=== PATIENT | female | born 1945 | race Caucasian/White ===

== ENCOUNTER 2021-11-08 10:10 | Outpatient (CLI) | payer MEDICARE, SELFPAY ==
--- NOTE | 2021-11-08 10:20 | US_ITS ---
WS: [id number] Left breast ultrasound, 11/08/2021 Clinical Data: LT BREAST MASS Comparison: Mammogram, 11/08/2021 Findings: There is a 3.5 cm irregular mass with mixed echotexture in the 6:00 position. This mass is most consi stent with carcinoma of the breast. In the left axilla there are lymph nodes, one of which measures 0 .73 x 1.00 x 1.13 cm. US/US breast LT limited* [id number] Impression: 1. Irregular mass in the left breast most consistent with cancer. 2. Left axillary lymph nodes. 3. Recommend left breast biopsy BIRADS: 5-Highly Suggestive of Malignancy FOLLOW UP: See Report
--- NOTE | 2021-11-08 10:20 | MM_ITS ---
WS: [id number] Bilateral diagnostic 3D tomosynthesis digital mammogram, 11/08/2021 Clinical Data: LT BREAST MASS Comparison: None. Findings: The right breast is normal. The right breast shows fibroglandular tissue. The left breast shows an 3.5 cm irregular dense spiculated mass in the 6:00 position in the left teri st. This mass corresponds to the marker. There is retraction of the nipple and skin dimpling. MM/[place] [id number] Impression: 1. Abnormal 3.5 cm mass in the left breast suspicious for cancer. 2. Negative right breast. 3. Left breast ultrasound. BIRADS: 5-Highly Suggestive of Malignancy FOLLOW UP: See Report The CAD coloring checker was used.
== END 2021-11-08 10:11 | disposition home or self-care (01) ==
LOC: RAD 10:15
PROVIDERS: PCP Nurse Practitioner Family; Visit Provider Nurse Practitioner Family
DX: N63.25 Unspecified lump in the left breast, overlapping quadrants (principal)
CPT/HCPCS: 76642; 77062

== ENCOUNTER 2021-11-30 10:25 | Outpatient (CLI) | payer MEDICARE, SELFPAY ==
--- NOTE | 2021-11-30 | US_ITS ---
WS: [id number] ULTRASOUND-GUIDED LEFT BREAST BIOPSY ULTRASOUND-GUIDED LEFT AXILLARY LYMPH NODE BIOPSY HISTORY: LEFT breast mass. Abnormal LEFT axillary lymph node. COMPARISON: 11/08/2021 Procedure, risks and complications are explained to the patient. Medications are reviewed. Consent is obtained. The mass in the LEFT breast is localized with ultrasound. Mass localizes to 6:00. Skin is cleansed wi th ChloraPrep and anesthetized with 1% buffered lidocaine. Small dermatome is made. Under sterile con ditions mass is biopsied with a 14-gauge Achieve needle. Multiple core biopsies are performed. Materi al placed in formalin and sent to pathology for review. No complications encountered. Breast tissue marker (Seemage ultrasound enhanced ribbon): Single. LEFT axillary lymph node is biopsied with a 20-gauge needle. Biopsy clip placed after procedure. No c omplications. Specimen placed in saline. Patient left the radiology suite with no complications. Patient is instructed to return to [facility] or [facility] with any concerns. US/US biopsy lymph node breast/ax IMPRESSION: 1. Uncomplicated core needle biopsy LEFT breast mass at 6:00. 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 Please see the entire pathology report for additional inf ormation. Lymphovascular invasion is identified. RECOMMENDATION: Follow-up with breast surgeon and oncology. 2. Uncomplicated core needle biopsy LEFT axillary lymph node. 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 RECOMMENDATION: Follow-up with breast surgeon and oncology.
--- NOTE | 2021-11-30 10:44 | US_ITS ---
WS: [id number] ULTRASOUND-GUIDED LEFT BREAST BIOPSY ULTRASOUND-GUIDED LEFT AXILLARY LYMPH NODE BIOPSY HISTORY: LEFT breast mass. Abnormal LEFT axillary lymph node. COMPARISON: 11/08/2021 Procedure, risks and complications are explained to the patient. Medications are reviewed. Consent is obtained. The mass in the LEFT breast is localized with ultrasound. Mass localizes to 6:00. Skin is cleansed wi th ChloraPrep and anesthetized with 1% buffered lidocaine. Small dermatome is made. Under sterile con ditions mass is biopsied with a 14-gauge Achieve needle. Multiple core biopsies are performed. Materi al placed in formalin and sent to pathology for review. No complications encountered. Breast tissue marker (Cyrba ultrasound enhanced ribbon): Single. LEFT axillary lymph node is biopsied with a 20-gauge needle. Biopsy clip placed after procedure. No c omplications. Specimen placed in saline. Patient left the radiology suite with no complications. Patient is instructed to [place] [facility] [place] [facility] with any concerns. US/[place] [id number] IMPRESSION: 1. Uncomplicated core needle biopsy LEFT breast mass at 6:00. 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 Please see the entire pathology report for additional inf ormation. Lymphovascular invasion is identified. RECOMMENDATION: Follow-up with breast surgeon and oncology. 2. Uncomplicated core needle biopsy LEFT axillary lymph node. 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 RECOMMENDATION: Follow-up with breast surgeon and oncology.
[2021-12-03 14:00] LABS: Lymphoma Profile (BBPL) See Report
[2021-12-06 13:46] LABS: Breast Profile ER,PR,HER2,Ki-6 See Report
== END 2021-11-30 10:26 | disposition home or self-care (01) ==
LOC: RAD 10:26
PROVIDERS: PCP Nurse Practitioner Family; Visit Provider Nurse Practitioner Family
DX: N63.25 Unspecified lump in the left breast, overlapping quadrants (principal); C50.812 Malignant neoplasm of overlapping sites of left female breast
CPT/HCPCS: 19083; 38505; 76942; 88184; 88185; 88305; 88361; 88374

== ENCOUNTER 2021-12-25 15:26 | Oncology outpatient (recurring) (ONCR) | payer MEDICARE, SELFPAY | END 2022-01-23 23:59 | disposition home or self-care (01) | PROVIDERS: PCP Nurse Practitioner Family; Visit Provider Internal Medicine Hematology & Oncology | DX: C50.812 Malignant neoplasm of overlapping sites of left female breast (principal); Z17.0 Estrogen receptor positive status [ER+]; C77.3 Secondary and unspecified malignant neoplasm of axilla and upper limb lymph nodes; Z79.818 Long term (current) use of other agents affecting estrogen receptors and estrogen levels | CPT/HCPCS: 99204 ==

== ENCOUNTER 2022-02-05 09:46 | Oncology outpatient (recurring) (ONCR) | payer MEDICARE, SELFPAY ==
[2022-01-30 10:06] LABS: Basophils % 0.4 %; Eosinophils # 0.1 10^3/uL (0.0-0.8); Eosinophils % 1.3 %; Hematocrit 41.2 % (37.0-47.0); Hemoglobin 13.6 g/dL (11.5-15.3); Lymphocytes # 2.1 10^3/uL (0.8-4.8); Lymphocytes % 23.5 %; Mean Corpuscular Hemoglobin 31.2 pg (28.0-34.0); Mean Corpuscular Volume 94.5 fl (81-99); Mean Platelet Volume 9.6 fL (7.4-10.4); Monocytes # 0.4 10^3/uL (0.2-0.9); Monocytes % 4.9 %; Neutrophils # 6.21 10^3/uL (1.8-7.7); Neutrophils % 69.5 %; Nucleated Red Blood Cells % 0 %; Platelet Count 349 10^3/cmm (130-400); Red Blood Count 4.36 10^6/uL (4.1-5.3)
[2022-01-30 10:19] LABS: Alanine Aminotransferase 9 U/L (0-33); Albumin Level 3.9 g/dL (3.5-5.2); Alkaline Phosphatase 61 U/L (35-105); Anion Gap 14.2 (5-19); Aspartate Amino Transferase 10 U/L (0-32); Blood Urea Nitrogen 10 mg/dL (8-23); Calcium 9.3 mg/dL (8.5-10.5); Carbon Dioxide 26 mmol/L (22-29); Chloride 102 mmol/L (98-107); Globulin 2.7 g/dL (1.3-4.6); Glucose 104 mg/dL (65-115); Osmolality Calculated 285 mOsm/kg (285-295); Potassium 4.2 mmol/L (3.5-5.1); Sodium 138 mmol/L (136-145); Total Bilirubin 0.4 mg/dL (0.15-1.2); Total Protein 6.6 g/dL (6.6-8.7)
--- NOTE | 2022-02-05 11:11 | N.ONRAD NP_ITS ---
Radiation Oncology Consultation Patient Name: Nancy Stockton Date of : 1945 Date of Service: 02/05/2022 Attending Physician: Narendra Montano M.D. Nancy Stockton was seen in in consultation this morning at the request Bin Edwards M.D. for consideration of postmastectomy radiotherapy in the management of a recently diagnosed breast cancer. She was evaluated for a palpable left breast mass. A diagnostic mammogram ordered on November 08, 2021 (independently reviewed in [facility]) revealed 3.5 cm irregular mass at the 6 o'clock position in the left breast. Ultrasonography confirmed a 3.5 cm mixed echotexture mass with left axillary lymphadenopathy. Needle core ultrasound-guided biopsy obtained on November 30, 2021 diagnosed a poorly-differentiated invasive ductal carcinoma with giant cell and sarcomatoid features within the left breast mass a left axillary lymph node biopsy also demonstrated a poorly-differentiated ductal carcinoma. The breast cancer prognostic profile was positive for estrogen receptor (98%) and progesterone receptor (95%), but HER-2 negative (2+; ratio 1.7). The KI???67 was 25%. A right mastectomy and left mastectomy with targeted axillary node dissection was performed by Florin Livingston M.D. on January 16, 2022. The pathology report (requested from the outside hospital and reviewed in [facility]) confirmed a 2.9 cm grade 3 invasive ductal carcinoma in the left mastectomy specimen. A grade 2 ductal carcinoma in situ of the solid subtype was present. All surgical margins were negative for malignancy (closest margin was 5 mm). A total of 3 lymph nodes were harvested with one harboring metastatic disease. The lymph node measured 2.9 cm with extranodal extension present. The right mastectomy tissue did not comprise any malignancy. The Oncotype DX Breast Recurrence Score was 8 (11% risk of distant recurrence; no apparent benefit with chemotherapy). Neoadjuvant aromatase inhibitor was prescribed by Bin Edwards M.D. The patient was referred for postmastectomy radiotherapy. I discussed with Ms. Stockton The [place] [employer] on Cancer Staging for breast cancer and specifically the patient's pathological stage IIA (T2N1a) breast cancer. I also reviewed The National Comprehensive Cancer Network Guidelines recommending adjuvant radiotherapy. This endorsement is in accordance to the classic studies by the [place] Breast [employer] Cooperative Group and the Early Breast Cancer Trialists??? Collaborative Group. She is aware that these studies demonstrated an overall survival improvement in patients treated with post-mastectomy radiotherapy. I would recommend a five week course of left chest wall and regional lymph node radiotherapy. A computed tomographic radiotherapy planning scan with contrast will be acquired in the treatment position to identify the clinical tumor volumes. The potential toxicities of post-mastectomy radiotherapy were reviewed. The patient has verbalized understanding would like to proceed as recommended. The patient's medical treatment plan has been discussed with Bin Edwards M.D. Signed by: Dr. Narendra Montano 02/05/2022 11:09:01 AM
== END 2022-02-23 23:59 | disposition home or self-care (01) ==
PROVIDERS: PCP Nurse Practitioner Family; Visit Provider Internal Medicine Hematology & Oncology
DX: C50.812 Malignant neoplasm of overlapping sites of left female breast (principal); Z17.0 Estrogen receptor positive status [ER+]; C77.3 Secondary and unspecified malignant neoplasm of axilla and upper limb lymph nodes; Z90.13 Acquired absence of bilateral breasts and nipples; Z79.818 Long term (current) use of other agents affecting estrogen receptors and estrogen levels; Z79.899 Other long term (current) drug therapy
CPT/HCPCS: 80053; 85025; 99205; 99214

== ENCOUNTER 2022-04-15 18:42 | Inpatient (IN) | payer MEDICARE, SELFPAY ==
[2022-04-15 18:44] VITALS: BP 136/60; PULSE 69; RESP 16; TEMP 36.6; O2SAT 92; BMI 25.6
--- NOTE | 2022-04-15 18:49 | XRR_ITS ---
PROCEDURE INFORMATION: Exam: XR Chest Exam date and time: 04/15/2022 6:58 PM Age: 76 years old Clinical indication: Screening exam; Pre-operative exam; Other: Pre op; Additional info: Fall TECHNIQUE: Imaging protocol: Radiologic exam of the chest. Views: 1 view. COMPARISON: No relevant prior studies available. FINDINGS: Lungs: Unremarkable. No consolidation. Pleural spaces: Unremarkable. No pleural effusion. No pneumothorax. Heart/Mediastinum: Unremarkable. No cardiomegaly. Bones/joints: Unremarkable. XR/XR chest 1V portable [id number] IMPRESSION: No acute findings.
--- NOTE | 2022-04-15 18:49 | XRR_ITS ---
PROCEDURE INFORMATION: Exam: XR Right Hip Exam date and time: 04/15/2022 6:58 PM Age: 76 years old Clinical indication: Injury or trauma; Fall; Fracture of pelvis & hip; Right; Traumatic fracture; Neck of femur; Displaced TECHNIQUE: Imaging protocol: Radiologic exam of the Right hip. Views: 1 view hip with pelvis when performed. COMPARISON: No relevant prior studies available. FINDINGS: Bones/joints: Right hip intertrochanteric to subtrochanteric impacted fracture with overlap of the fracture fragments along with a displaced lesser trochanter fracture. Soft tissues: Unremarkable. XR/XR hip RT 2-3V wo/w pel* [id number] IMPRESSION: Right hip intertrochanteric to subtrochanteric impacted fracture with overlap of the fracture fragments along with a displaced lesser trochanter fracture.
--- NOTE | 2022-04-15 18:49 | W.ED.EXTPRO ---
HPI - Extremity Problem General: Chief complaint: Extremity Injury, Lower Stated complaint: FALL/ FEMUR/HIP FX Time Seen by Provider: 04/15/22 18:44 Source: patient and EMS Mode of arrival: EMS Limitations: no limitations History of Present Illness: 76-year-old female who had a ground-level fall onto her right side just prior to arrival she states landed on her right hip does not be able to stand she been having right hip pain she was given 100 mcg of fentanyl in route states her pain is resolved but it is painful when she tries to move her legs she denies any other injuries with her fall denies hitting her head denies any neck pain. Associated symptoms: Deny chest pain, fever(s) or rash Review of Systems Const: Denies: fever(s), chills, body aches or change in appetite Eyes: Denies: blurry vision or eye discomfort ENMT: Denies: throat pain or dental pain Card: Denies: chest pain Resp: Denies: dyspnea GI: Denies: abdominal pain, nausea, vomiting or diarrhea : Denies: dysuria Musc: Reports: extremity pain Skin/Breast: Denies: rash Neuro: Denies: headache(s) Psych: Denies: depression Gopal/Lymph: Denies: easy bruising All/Imm: Denies: urticaria PFSH ED PFSH: Surgical History (Updated 04/15/22 @ 18:51 by Gerardo Bueno MD) History of mastectomy Right - 01/16/2022 Family History Mother CAD (coronary artery disease) Diabetes Father Cancer Prostate Daughter Lung disease Other Hypertension Denies family history of Clotting disorder Dementia Hyperlipidemia Psychiatric illness Chronic kidney disease (CKD) Suicide Anesthesia complication Bleeding disorder Stroke Social History Smoking and tobacco status: current every day smoker (1 ppd, smoked x 50+ years) Alcohol intake: never Physical Exam Const: COMMON NORMALS: no acute distress, patient oriented x3 and healthy appearing HENMT: COMMON NORMALS: normocephalic and atraumatic HEAD & SCALP: normocephalic and atraumatic Eye: COMMON NORMALS: Equal, round and reactive pupils present and EOMs intact bilaterally PUPIL: Yes Equal, round and reactive pupils present Neck/C-Spine: COMMON NORMALS: full ROM and supple Chest: COMMONS NORMALS: normal inspection of the chest and normal palpation of entire chest wall Resp: COMMON NORMALS: normal respiratory effort, No retractions, No use of accessory muscles and clear to auscultation bilaterally AUSCULTATION: clear to auscultation bilaterally Cardio: COMMON NORMALS: regular rate, regular rhythm and No murmurs present (Cardio) RATE: regular rate RHYTHM: regular rhythm GI: COMMON NORMALS: Normal to inspection, nondistended, normoactive bowel sounds present, Soft to palpation, non-tender and no masses PALPATION: Yes Soft to palpation Extremity: NARRATIVE EXTREMITY EXAM: Tenderness over right hip with shortening and external rotation Neuro: COMMON NORMALS: patient oriented x3, moves all extremities and no focal motor deficits Psych: COMMON NORMALS: mental status grossly normal, Normal thought process present and cooperative THOUGHT PROCESS: Normal thought process present Skin: COMMON NORMALS: no rashes or lesions noted and no wounds GENERAL SKIN EXAM: no rashes or lesions noted Course Vital Signs: Vital signs: Vital Signs Temperature 97.8 F 04/15/22 18:44 Pulse Rate 69 04/15/22 18:44 Respiratory Rate 16 04/15/22 18:44 Blood Pressure 136/60 04/15/22 18:44 Pulse Oximetry 92 04/15/22 18:44 Oxygen Delivery Me thod 04/15/22 18:44 MDM - Extremity (Nontraumatic) Medical Decision Making Patient presents here with a right hip fracture from a fall no other injuries noted I spoke to orthopedist along with hospitalist and will admit at this time. Lab Data 04/15/22 19:15 04/15/22 19:15 Laboratory Results WBC 27.2 10^3/uL (4.0-10.0) H 04/15/22 19:15 RBC 4.00 10^6/uL (4.1-5.3) L 04/15/22 19:15 Hgb 12.3 g/dL (11.5-15.3) 04/15/22 19:15 Hct 37.8 % (37.0-47.0) 04/15/22 19:15 MCV 94.5 fl (81-99) 04/15/22 19:15 MCH 30.8 pg (28.0-34.0) 04/15/22 19:15 MCHC 32.5 g/dL (30.0-36.0) 04/15/22 19:15 RDW 11.8 % (12.1-15.1) L 04/15/22 19:15 Plt Count 321 10^3/cmm (130-400) 04/15/22 19:15 MPV 9.7 fL (7.4-10.4) 04/15/22 19:15 Neut % (Auto) 89.1 % 04/15/22 19:15 Lymph % (Auto) 6.4 % 04/15/22 19:15 [place] % (Auto) 3.1 % 04/15/22 19:15 Eos % (Auto) 0.1 % 04/15/22 19:15 Baso % (Auto) 0.3 % 04/15/22 19:15 Neut # (Auto) 24.19 10^3/uL (1.8-7.7) H 04/15/22 19:15 Lymph # (Auto) 1.7 10^3/uL (0.8-4.8) 04/15/22 19:15 [place] # (Auto) 0.9 10^3/uL (0.2-0.9) 04/15/22 19:15 Eos # (Auto) 0.0 10^3/uL (0.0-0.8) 04/15/22 19:15 Baso # (Auto) 0.1 10^3/uL (0.0-0.1) 04/15/22 19:15 Nucleated RBC % (auto) 0 % 04/15/22 19:15 Nucleated RBCs # 0.0 /100WBC 04/15/22 19:15 PT 13.50 SECONDS (12.1-14.9) 04/15/22 19:15 INR 1.00 (0.8-1.2) 04/15/22 19:15 Sodium 136 mmol/L (136-145) 04/15/22 19:15 Potassium 4.0 mmol/L (3.5-5.1) 04/15/22 19:15 Chloride 99 mmol/L (98-107) 04/15/22 19:15 Carbon Dioxide 26 mmol/L (22-29) 04/15/22 19:15 Anion Gap 15.0 (5-19) 04/15/22 19:15 BUN 12 mg/dL (8-23) 04/15/22 19:15 Creatinine 0.5 mg/dL (0.5-0.9) 04/15/22 19:15 GFR Calculation Not Reportable 04/15/22 19:15 Glucose 159 mg/dL (65-115) H 04/15/22 19:15 Calculated Osmolality 285 mOsm/kg (285-295) 04/15/22 19:15 Calcium 8.8 mg/dL (8.5-10.5) 04/15/22 19:15 Total Bilirubin 0.2 mg/dL (0.15-1.2) 04/15/22 19:15 AST 14 U/L (0-32) 04/15/22 19:15 ALT 6 U/L (0-33) 04/15/22 19:15 Alkaline Phosphatase 55 U/L (35-105) 04/15/22 19:15 Total Protein 6.3 g/dL (6.6-8.7) L 04/15/22 19:15 Albumin 3.5 g/dL (3.5-5.2) 04/15/22 19:15 Globulin 2.8 g/dL (1.3-4.6) 04/15/22 19:15 Discharge Plan Discharge Condition: Stable Prescriptions: No Action (DME) Prosthetic Bra See Rx Instructions .Route .MEDSUPPLY Qty: 1 0RF Rx Instructions: As directed anastrozole [Arimidex] 1 mg tablet 1 mg PO DAILY Qty: 90 2RF Referrals: Jovani Cerna [Referring] - Coding Level of Care Code ED Network Program Manager for [facility]
--- NOTE | 2022-04-15 19:09 | ECG_ITS ---
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 Measurements Intervals [place] Rate: 72 P: 78 DC: 183 QRS: 66 QRSD: 82 T: 70 QT: 403 QTc: 444 Interpretive Statements SINUS RHYTHM POSSIBLE LEFT ATRIAL ENLARGEMENT [-0.1mV P-WAVE IN V1/V2] No previous ECG available for comparison Electronically Signed On 04-16-2022 17:38:42 NIGHT WORKER by Dwain Borja M.D. [id number]
[2022-04-15 19:21] LABS: Basophils # 0.1 10^3/uL (0.0-0.1); Basophils % 0.3 %; Eosinophils % 0.1 %; Hematocrit 37.8 % (37.0-47.0); Hemoglobin 12.3 g/dL (11.5-15.3); Lymphocytes # 1.7 10^3/uL (0.8-4.8); Lymphocytes % 6.4 %; Mean Corpuscular HGB Conc 32.5 g/dL (30.0-36.0); Mean Corpuscular Hemoglobin 30.8 pg (28.0-34.0); Mean Corpuscular Volume 94.5 fl (81-99); Mean Platelet Volume 9.7 fL (7.4-10.4); Monocytes # 0.9 10^3/uL (0.2-0.9); Monocytes % 3.1 %; Neutrophils # 24.19 10^3/uL (1.8-7.7); Neutrophils % 89.1 %; Nucleated Red Blood Cells % 0 %; Platelet Count 321 10^3/cmm (130-400); Red Cell Distribution Width 11.8 % (12.1-15.1); White Blood Count 27.2 10^3/uL (4.0-10.0)
[2022-04-15 19:38] LABS: Alanine Aminotransferase 6 U/L (0-33); Albumin Level 3.5 g/dL (3.5-5.2); Alkaline Phosphatase 55 U/L (35-105); Aspartate Amino Transferase 14 U/L (0-32); Blood Urea Nitrogen 12 mg/dL (8-23); Calcium 8.8 mg/dL (8.5-10.5); Carbon Dioxide 26 mmol/L (22-29); Chloride 99 mmol/L (98-107); Creatinine Clr Calc Pharmacy 51.5616; Globulin 2.8 g/dL (1.3-4.6); Glucose 159 mg/dL (65-115); Osmolality Calculated 285 mOsm/kg (285-295); Sodium 136 mmol/L (136-145); Total Bilirubin 0.2 mg/dL (0.15-1.2); Total Protein 6.3 g/dL (6.6-8.7)
--- NOTE | 2022-04-15 19:48 | PM.HP ---
Providers/Chief Complaint Chief Complaint: FALL/ FEMUR/HIP FX History of Present Illness Nancy Stockton is a 76 year old female with no significant past medical history other than breast cancer post bilateral mastectomy on oral anastrozole, smoker presented to the ER today because of mechanical fall from a chair on which she was standing to hang few paintings after which started having hip pain and was not able to stand up. In the ER she was found to have a hip fracture. Medicine was consulted for further evaluation and management. Orthopedics has been consulted. She denies any other complaints including diarrhea, dysuria, cough, dizziness, nausea, vomiting. Review of Systems General: Reports: 10 or more systems reviewed and unremarkable except in HPI and below Const: Denies: fever(s), chills, body aches, change in appetite, change in weight, malaise, night sweats, diaphoresis, change in sleep pattern, daytime sleepiness or snoring Eyes: Denies: change in vision, blurry vision, photophobia, eye discomfort or eye discharge ENMT: Denies: throat pain, enlarged tonsils, hoarseness, mouth pain, oral sores, dry mouth, tinnitus, nasal congestion or post nasal drip Card: Denies: chest pain, palpitations, irregular heart rhythm, edema, swelling of feet/ankles, lightheadedness, syncope, pre-syncope, dyspnea on exertion, orthopnea, leg pain with exertion or acrocyanosis Resp: Denies: dyspnea, productive cough, non-productive cough, wheezing, stridor, pain on inspiration, change in phlegm color, hemoptysis or chest congestion GI: Denies: abdominal pain, nausea, vomiting, hematemesis, coffee ground emesis, dysphagia, heartburn, diarrhea, constipation, bloating, GI cramping, change in bowel habits, pain on defecation, hematochezia or melena : Denies: flank pain, dysuria, urinary frequency, urinary urgency, urinary hesitancy, nocturia or hematuria Musc: Denies: neck pain, back pain, extremity pain, joint pain, joint swelling, joint redness, joint stiffness or limited range of motion Neuro: Denies: headache(s), numbness in extremities, weakness in extremities, sensory changes, lack of coordination, difficulty walking, frequent falls, dizziness, vertigo, confusion, Slurred speech present, difficulty communicating thoughts or seizure-like activity Psych: Denies: anxiety, depression, mood swings, panic attacks, hopelessness or irritability Endo: Denies: polyuria, polydipsia, tired all the time, cold intolerance, excessive sweating, flushing or heat intolerance Gopal/Lymph: Denies: easy bruising or easy bleeding All/Imm: Denies: tongue swelling, facial swelling or acute wheezing Medications/Allergies Home Medications Medication Instructions Recorded Confirmed Last Taken Type anastrozole 1 mg tablet (Arimidex) 1 mg PO DAILY #90 tabs 01/25/22 04/15/22 04/14/22 23:00 Rx Prosthetic Bra #1 ea 01/30/22 01/30/22 Unknown Rx Allergies Allergy/AdvReac Type Severity Reaction Status Date / Time No Known Allergies Allergy Verified 01/30/22 10:32 PFSH Acute PFSH: Medical History Breast cancer Smoker Surgical History (Updated 04/15/22 @ 18:51 by Gerardo Bueno MD) History of mastectomy Right - 01/16/2022 Family History Mother CAD (coronary artery disease) Diabetes Father Cancer Prostate Daughter Lung disease Other Hypertension Denies family history of Clotting disorder Dementia Hyperlipidemia Psychiatric illness Chronic kidney disease (CKD) Suicide Anesthesia complication Bleeding disorder Stroke Social History Smoking and tobacco status: current every day smoker (1 ppd, smoked x 50+ years) Alcohol intake: never Vitals/I&O/Wt Last Vital Signs Temp 97.8 F 04/15/22 18:44 Pulse 69 04/15/22 18:44 Resp 16 04/15/22 18:44 BP 136/60 04/15/22 18:44 Pulse Ox 92 04/15/22 18:44 O2 Del Method 04/15/22 18:44 Weight last 48 hrs Weight 63.503 kg Physical Exam Narrative: General: No acute distress, AO x3 HEENT: PERRLA, pupils bilaterally equal and reactive Chest: Normal vesicular breath sounds, no added sounds, equal good air entry bilaterally CVS: S1-S2 regular, no murmurs, no tachycardia, no gallops, no rubs Abdomen: Soft, nontender, no organomegaly, bowel sounds present Neuro: No focal deficits, no facial deformity, AO x3, power 5/5 in all limbs Extremities: Right leg in antalgic position, externally rotated Data 04/15/22 19:15 04/15/22 19:15 A&P Assessment and plan (1) Closed right hip fracture: Orthopedic has been consulted from the ER. Plan for ORIF. [place] 5 mg to 8 hourly as needed. Physical therapy, anticoagulation as per orthopedic team. Postoperatively monitor hemoglobin. (2) Leukocytosis: No actual signs of current infection. Could be reactive secondary to hip fracture. Check urinalysis. Chest x-ray without consolidation. Empirically will start on ceftriaxone for now. Will de-escalate antibiotics if patient remains hemodynamically stable and afebrile. Plan Left breast cancer on Oral anastrozole. Check vitamin D levels. Check A1c, lipid panel, vitamin B12, folate, iron panel. Analgesia: [place] 5 mg every 8 hourly as needed, morphine 1 mg every 4 hourly as needed Glycemic control: Not needed. Check A1c. Nutrition: Regular diet, n.p.o. after midnight. CODE STATUS: Full code PUD prophylaxis: Famotidine every 12 hourly DVT prophylaxis: Foot pumps, SCDs. Medical prophylaxis contraindicated in setting of possible OR within next 24 hours. Discharge planning: Home versus SNF depending on physical therapy postoperatively. Admit to [facility] This documentation was created by [employer] hat cleaner software. Every effort was made to ensure accuracy of hat cleaner. Any obvious errors or omissions should be clarified with the author of the document. Attestations Medical Necessity Statement*: Admission for more than 2 midnights for right hip fracture requiring ORIF. and High Time for a total of 80 minutes, includes reviewing past or interval history, examining/interviewing patient, placing orders, counseling patient/family/other support, updating patient/family/other support, discussing plan of care with staff, communicating with other healthcare providers, documenting encounter and coordinating care Diagnoses Closed right hip fracture S72.001A Leukocytosis D72.829
[2022-04-15] MEDS: sodium chloride 0.9% 1,000 ML 999 ML IV (20:12)
[2022-04-15 20:46] LABS: Thyroid Stimulating Hormone 3.26 uIU/mL (0.27-4.20)
[2022-04-15 21:26] VITALS: PULSE 0; PULSE 87; RESP 17; TEMP 36.5; O2SAT 95
[2022-04-15 21:35] LABS: Blood Urine 3+ (Negative); Glucose Urine UA Norm (Normal); Ketones Urine Negative (Negative); Protein Urine Neg (Negative); Specific Gravity, Urine 1.025 (1.005-1.030); Urine Appearance Clear (CLEAR); Urine Color Yellow (Yellow); pH Urine 5 (5-7)
[2022-04-15 21:36] LABS: Add Urine Microscopic? YES; Bilirubin Urine Neg (Negative); Leukocyte Esterase Urine Negative (Negative); Nitrate Urine Negative (Negative); Urobilinogen Urine Norm (Negative); WBC Urine 0-4 /hpf (0-5)
[2022-04-15 21:37] LABS: Mucus Urine 2+ /hpf
[2022-04-15 21:38] LABS: Bacteria Urine 1+ /hpf
[2022-04-15 22:00] VITALS: RESP 15
[2022-04-15] MEDS: cefTRIAXone 1,000 MG in sodium chloride 0.9% (plus) 50 ML 100 MG IV (22:00)
[2022-04-15] MEDS: morphine 4 mg/mL SDV 1 mL 1 MG IVP (22:00)
[2022-04-15] MEDS: dextrose 5%-sod chloride 0.9% 1,000 ML 50 ML IV (22:03)
[2022-04-15 22:57] VITALS: PULSE 97
[2022-04-16] VITALS (21 sets, daily range): BP systolic 100–155; BP diastolic 53–77; PULSE 69–101; RESP 16–19; TEMP 36.4–38.1; O2SAT 90–100
[2022-04-16 00:02] LABS: Procalcitonin 0.03 ng/mL (0-0.5); Vitamin B12 153 pg/mL (232-1245)
[2022-04-16 00:14] LABS: Iron 46 ug/dL (37-145); Percent Saturation 23.5 % (20-50); Total Iron Binding Capacity 195 mcg/dl; Unsaturated Iron Binding 149 ug/dL (112-347)
[2022-04-16] MEDS: nicotine 14 mg Patch 1 PATCH TRANSDERMA (00:51)
[2022-04-16 00:58] LABS: Folate Level 12.4 ng/mL (4.8-37.3)
[2022-04-16] MEDS: morphine 4 mg/mL SDV 1 mL 1 MG IVP ×3 (04:04→14:01)
[2022-04-16 04:49] LABS: Basophils % 0.2 %; Eosinophils % 0.1 %; Hematocrit 32.5 % (37.0-47.0); Hemoglobin 10.9 g/dL (11.5-15.3); Lymphocytes # 2.1 10^3/uL (0.8-4.8); Lymphocytes % 17.7 %; Mean Corpuscular HGB Conc 33.5 g/dL (30.0-36.0); Mean Corpuscular Hemoglobin 31.5 pg (28.0-34.0); Mean Corpuscular Volume 93.9 fl (81-99); Mean Platelet Volume 9.8 fL (7.4-10.4); Monocytes # 0.8 10^3/uL (0.2-0.9); Monocytes % 6.3 %; Neutrophils # 9.03 10^3/uL (1.8-7.7); Nucleated Red Blood Cells % 0 %; Platelet Count 281 10^3/cmm (130-400); Red Blood Count 3.46 10^6/uL (4.1-5.3)
[2022-04-16 05:13] LABS: Alanine Aminotransferase 6 U/L (0-33); Albumin Level 3.2 g/dL (3.5-5.2); Alkaline Phosphatase 48 U/L (35-105); Anion Gap 12.5 (5-19); Aspartate Amino Transferase 13 U/L (0-32); Blood Urea Nitrogen 10 mg/dL (8-23); Calcium 8.3 mg/dL (8.5-10.5); Carbon Dioxide 25 mmol/L (22-29); Chloride 105 mmol/L (98-107); Chol HDL Ratio 2.85 mg/dL (0.0-4.40); Cholesterol 148 mg/dL (0-200); Globulin 2.4 g/dL (1.3-4.6); Glucose 172 mg/dL (65-115); HDL Cholesterol 52 mg/dL (60-100); LDL Cholesterol Calculated 82 mg/dL (50-129); Magnesium 2.1 mg/dL (1.7-2.3); Osmolality Calculated 289 mOsm/kg (285-295); Potassium 4.5 mmol/L (3.5-5.1); Sodium 138 mmol/L (136-145); Total Bilirubin 0.3 mg/dL (0.15-1.2); Total Protein 5.6 g/dL (6.6-8.7); Triglycerides 72 mg/dL (0-150); VLDL Cholestrol Calculation 14 mg/dL (0-30)
[2022-04-16 05:17] LABS: Estmated Average Glucose 108; Hemoglobin A1C 5.4 % (4.0-6.0)
--- NOTE | 2022-04-16 07:11 | P.CONIM_ITS ---
Providers/Reason For Consult Consulting Physician/Specialty*: Harjit Elizabeth MD; orthopedic surgery Reason for Consult*: Right subtrochanteric hip fracture Attending Physician: Pro Severino MD History of Present Illness History of Present Illness Nancy Stockton is a 76 year old female who fell yesterday afternoon at home. She was standing on a couch attempting to hang a picture when she lost her balance hitting the floor with immediate pain in her right hip. She was transferred by EMS here to our hospital radiographs revealed a right intratrochanteric hip fracture. The patient lives alone. She ambulated without aids. She currently is under treatment for breast cancer Medications/Allergies Home Medications Medication Instructions Recorded Confirmed Last Taken Type anastrozole 1 mg tablet (Arimidex) 1 mg PO DAILY #90 tabs 01/25/22 04/15/22 04/14/22 23:00 Rx Prosthetic Bra #1 ea 01/30/22 01/30/22 Unknown Rx Allergies Allergy/AdvReac Type Severity Reaction Status Date / Time No Known Allergies Allergy Verified 01/30/22 10:32 Current Medications Generic Name Dose Route Start Last Admin Trade Name Freq PRN Reason Stop Dose Admin Ceftriaxone Sodium 1,000 mg/ 50 mls @ 100 mls/hr 04/15/22 21:30 04/15/22 23:03 Sodium Chloride IV Infused Q24H BRENT Infusion Protocol Dextrose/Sodium Chloride 1,000 mls @ 50 mls/hr 04/15/22 21:26 04/15/22 22:03 Dextrose 5%-Sod Chloride 0.9% IV 04/16/22 17:25 50 mls/hr .Q20H BRENT Administration Morphine Sulfate 1 mg 04/15/22 21:26 04/16/22 04:04 Morphine 4 Mg/Ml Sdv 1 Ml IVP 1 mg Q4H PRN Administration SEVERE PAIN Nicotine 1 patch 04/15/22 23:56 04/16/22 00:51 Nicotine 14 Mg Patch TRANSDERMA 1 patch DAILY BRENT Administration PFSH Acute PFSH: Medical History Breast cancer Smoker Surgical History (Updated 04/15/22 @ 18:51 by Gerardo Bueno MD) History of mastectomy Right - 01/16/2022 Family History Mother CAD (coronary artery disease) Diabetes Father Cancer Prostate Daughter Lung disease Other Hypertension Denies family history of Clotting disorder Dementia Hyperlipidemia Psychiatric illness Chronic kidney disease (CKD) Suicide Anesthesia complication Bleeding disorder Stroke Social History Smoking and tobacco status: current every day smoker (1 ppd, smoked x 50+ years) Alcohol intake: never Vitals/I&O/Wt Last Vital Signs Temp 98.8 F 04/16/22 04:00 Pulse 98 04/16/22 06:42 Resp 16 04/16/22 04:04 BP 127/76 04/16/22 04:00 Pulse Ox 91 04/16/22 04:00 O2 Del Method 04/16/22 03:01 04/15/22 04/16/22 04/16/22 22:59 06:59 14:59 Intake Total 1120 / 1120 50 / 1170 Output Total 600 / 600 Balance 1120 / 1120 -550 / 570 Weight last 48 hrs Weight 151 lb 1.6 oz Weight 140 lb Physical Exam Narrative: The patient has shortening and external rotation of the right hip. Severe pain with motion of the right hip. Flexes extends right toes and ankle without motor deficits Palpable right dorsalis pedis pulse Sensation intact right foot Urinary Catheter Management: Corral: Cath Placed During This Visit: yes Reason for Continuing Indwelling Catheter: Perioperative Use in Selected Surg eries Urinary Catheter Date of Insertion: 04/15/22 Urinary Catheter Time of Insertion: 21:00 Data 04/16/22 04:23 04/16/22 04:23 Other data: Radiographs of the right hip are reviewed from 04/15/2022. The patient has a comminuted right subtrochanteric hip fracture A&P Assessment and plan (1) Intertrochanteric fracture of right hip: Adrianne has a unstable right intratrochanteric hip fracture. The fracture configuration shows some reversed obliquity. Fortunately I do not see any metastatic processes involving of bone. The mechanism would suggest that this is a traumatic fracture. In any event I think the best treatment option would be open reduction internal fixation with a intramedullary device. I discussed options with the patient and her daughter. I told them we could treat this nonoperatively but certainly they would be at risk for medical problems without surgery. Theywould have problems with pain that would require narcotics for pain control. 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 I discussed surgical intervention with the patient. I told them with open reduction internal fixation they should be able to be mobilized and resume ambulatory status. We can eliminate the problems associated with prolonged bed rest and would have better control of pain. Certainly there would be inherent risk with surgery. These would would include the risk of cardiac complications, stroke, infection, and even . I discussed risk of any orthopedic implant including nonunion, malunion, a component failure. I discussed the possible need for component removal. I discussed risk of deep venous thromboses and pulmonary emboli that are present with any treatment and the importance of DVT prophylaxis. They expressed good understanding of alternative treatments, seem to comprehend, and agrees to surgical intervention. Coding Level of Care Code Acute Code for [facility] [place] Diagnoses Intertrochanteric fracture of right hip S72.141A
[2022-04-16] MEDS: cyanocobalamin 1,000 mcg/mL SDV 1000 MCG IM (08:47)
--- NOTE | 2022-04-16 11:49 | PC.CHAP ---
Pastoral Care Encounter/Spiritual Assessment Type of Contact [] Declined terrapin fisher visit [] Patient/Family/Request visit [] Outpatient visit [] Follow-up visit [] Physician referral [] Code/Alert x[] Routine visit [] Staff referral [] Actively dying [x] Patient sleeping [] Family support [] [] Out of room [] Palliative care [] [] Receiving care in room [] Pre-surgical visit [] Trauma [] Long length of stay [] ICU visit [] Other: Relational/Emotional Strength [] Patient feels connected with others/family/visitors/staff [] Distress [] Loneliness/isolation [] Abandonment Spirituality of Patient [] Person of Isabel[place] [] Attends Hinduism of their [place] [] Believes in Prayer [] Reads Bible or Episcopalian materials [] There are Spiritual issues to be addressed [employer] Membership Sales Agent Interventions [] Prayer [] Active listening [] Non-anxious presence [] Spiritual/emotional support [] Crisis/trauma care [] Spiritual counseling [] Bereavement support [] Provided bereavement packet [] Provided Bible/devotional materials [] Provided toy/stuffed animal, coloring book to patient or family member [] Provided Communion [] Anointing/[place] [] Salvation [] Completed spiritual assessment [] Other: Impact on Illness or Injury [] Angry [] Fearful [] Anxious [] Often cries [] Exhaustion [] Unable to work [] Unable to attend mormon [] Unable to walk/stand [] Unable to read [] Unable to drive [] Unable to eat/drink [] Unable to sleep [] Unable to be with family [] Patient intubated [] Other: Summary Time spent with patient
--- NOTE | 2022-04-16 14:09 | PM.PN ---
Subjective Subjective: Patient was seen this morning, she tells me her pain is well controlled, she denies any fevers, no dysuria, she is a smoker, no history of pneumonia, recently she had a mastectomy for breast cancer, she tells me that Dr. Elizabeth saw her this morning, and he tells her that surgery is going to happen sometime this evening Vitals/I&O/Wt Last Vital Signs Temp 99.2 F 04/16/22 12:00 Pulse 81 04/16/22 12:00 Resp 18 04/16/22 14:01 BP 144/77 04/16/22 12:00 Pulse Ox 91 04/16/22 12:00 O2 Del Method 04/16/22 03:01 04/15/22 04/16/22 04/16/22 22:59 06:59 14:59 Intake Total 1120 / 1120 50 / 1170 260 / 260 Output Total 600 / 600 Balance 1120 / 1120 -550 / 570 260 / 260 Weight last 48 hrs Weight 68.538 kg Weight 63.503 kg Physical Exam Const: COMMON NORMALS: no acute distress and patient oriented x3 Resp: COMMON NORMALS: normal respiratory effort, No retractions, No use of accessory muscles and clear to auscultation bilaterally AUSCULTATION: clear to auscultation bilaterally Cardio: COMMON NORMALS: regular rate, regular rhythm, S1 normal heart sound present and S2 normal heart sound present RATE: regular rate RHYTHM: regular rhythm HEART SOUNDS: S1 normal heart sound present and S2 normal heart sound present GI: COMMON NORMALS: Normal to inspection, nondistended, normoactive bowel sounds present Extremity: COMMON NORMALS: no pedal edema Neuro: COMMON NORMALS: patient oriented x3 Psych: COMMON NORMALS: mental status grossly normal Urinary Catheter Management: Corral: Cath Placed During This Visit: yes Reason for Continuing Indwelling Catheter: Perioperative Use in Selected Surgeries Urinary Catheter Date of Insertion: 04/15/22 Urinary Catheter Time of Insertion: 21:00 Data 04/16/22 04:23 04/16/22 04:23 A&P Assessment and plan (1) Closed right hip fracture: Orthopedic has been consulted from the ER. Plan for ORIF. [place] 5 mg to 8 hourly as needed. Physical therapy, anticoagulation as per orthopedic team. Postoperatively monitor hemoglobin. (2) Leukocytosis: No actual signs of current infection. Could be reactive secondary to hip fracture. UA possible UTI, continue Rocephin Plan Left breast cancer on Oral anastrozole. Check vitamin D levels Vitamin B12 deficiency, will replace Analgesia: [place] 5 mg every 8 hourly as needed, morphine 1 mg every 4 hourly as needed Glycemic control: Not needed. Nutrition: Regular diet, n.p.o. after midnight. CODE STATUS: Full code PUD prophylaxis: Famotidine every 12 hourly DVT prophylaxis: Foot pumps, SCDs. Medical prophylaxis contraindicated in setting of possible OR within next 24 hours. Discharge planning: Home versus SNF depending on physical therapy postoperatively. Ad[facility] to [facility] This documentation was created by [employer] stone spreader operator software. Every effort was made to ensure accuracy of stone spreader operator. Any obvious errors or omissions should be clarified with the author of the document. Attestations Medical Necessity Statement*: Patient requires hospitalization for hip fracture, undergoing surgical intervention, B12 deficiency Diagnoses Closed right hip fracture S72.001A Leukocytosis D72.829
--- NOTE | 2022-04-16 14:59 | P.ANESASSM_ITS ---
Pre-Anesthetic Assessment Height/Weight: Height 1.57 m Weight 68.538 kg Temp Pulse Resp BP Pulse Ox O2 Del Method 100.6 F H 83 18 149/60 90 04/16/22 14:48 04/16/22 14:48 04/16/22 14:48 04/16/22 14:48 04/16/22 14:48 04/16/22 14:48 Preop Diagnosis: Right subtrochanteric hip fracture Operation Date: 04/16/22 15:30 Proposed Procedures p Trochanteric Femoral Nail(Left) - Harjit Elizabeth MD Familial anesthetic complications: PONV Was Beta Ozzie taken within 24 hours: N/A Was Clonidine taken within 24 hours: N/A Last intake: Intake Last Liquid Date 04/16/22 Last Liquid Time 06:00 Last Solid Date 04/15/22 Last Solid Time 06:00 Social Tobacco and No alcohol Exam alert, oriented x 3, clear to auscultation bilaterally and regular rate & rhythm Airway Mallampati: Class II Dentition: other (no teeth) Musc/skel mastectomy Anesthetic Plan ASA status: 2 Anesthesia: General Risk of > 500 ml blood loss (7ml/kg in children): No Medications/Allergies Home Medications Medication Instructions Recorded Confirmed Last Taken Type anastrozole 1 mg tablet (Arimidex) 1 mg PO DAILY #90 tabs 01/25/22 04/15/22 04/14/22 23:00 Rx Prosthetic Bra #1 ea 01/30/22 04/16/22 Unknown Rx Allergies Allergy/AdvReac Type Severity Reaction Status Date / Time No Known Allergies Allergy Verified 01/30/22 10:32 Current Medications Generic Name Dose Route Start Last Admin Trade Name Enrike PRN Reason Stop Dose Admin Cyanocobalamin 1,000 mcg 04/16/22 09:00 04/16/22 08:47 Cyanocobalamin 1,000 Mcg/Ml Sdv IM 04/19/22 08:59 1,000 mcg DAILY BRENT Administration Docusate Sodium 100 mg 04/16/22 09:00 04/16/22 08:48 Docusate Sodium 100 Mg Capsule PO Not Given BID BRENT Ceftriaxone Sodium 1,000 mg/ 50 mls @ 100 mls/hr 04/15/22 21:30 04/15/22 23:03 Sodium Chloride IV Infused Q24H BRENT Infusion Protocol Dextrose/Sodium Chloride 1,000 mls @ 50 mls/hr 04/15/22 21:26 04/15/22 22:03 Dextrose 5%-Sod Chloride 0.9% IV 50 mls/hr .Q20H BRENT Administration Morphine Sulfate 1 mg 04/15/22 21:26 04/16/22 14:01 Morphine 4 Mg/Ml Sdv 1 Ml IVP 1 mg Q4H PRN Administration SEVERE PAIN Nicotine 1 patch 04/15/22 23:56 04/16/22 08:48 Nicotine 14 Mg Patch TRANSDERMA Not Given DAILY BRENT PFSH Anesthesia Medical History Breast cancer Smoker Surgical History (Updated 04/15/22 @ 18:51 by Gerardo Bueno MD) History of mastectomy Right - 01/16/2022 Family History Mother CAD (coronary artery disease) Diabetes Father Cancer Prostate Daughter Lung disease Other Hypertension Denies family history of Clotting disorder Dementia Hyperlipidemia Psychiatric illness Chronic kidney disease (CKD) Suicide Anesthesia complication Bleeding disorder Stroke Social History Smoking and tobacco status: current every day smoker (1 ppd, smoked x 50+ years) Alcohol intake: never Data Anesthesia 04/16/22 04:23 04/16/22 04:23 Short CBC 04/15/22 04/16/22 Range/Units 19:15 04:23 WBC 27.2 H 12.0 H (4.0-10.0) 10^3/uL Hgb 12.3 10.9 L (11.5-15.3) g/dL Hct 37.8 32.5 L (37.0-47.0) % MCV 94.5 93.9 (81-99) fl Plt Count 321 281 (130-400) 10^3/cmm Neut % (Auto) 89.1 75.0 % Neut # (Auto) 24.19 H 9.03 H (1.8-7.7) 10^3/uL BMP 04/15/22 04/16/22 19:15 04:23 Sodium 136 138 Potassium 4.0 4.5 Chloride 99 105 Carbon Dioxide 26 25 BUN 12 10 Creatinine 0.5 0.5 Glucose 159 H 172 H Calcium 8.8 8.3 L Liver Function 04/15/22 04/16/22 Range/Units 19:15 04:23 Total Bilirubin 0.2 0.3 (0.15-1.2) mg/dL AST 14 13 (0-32) U/L ALT 6 6 (0-33) U/L Alkaline Phosphatase 55 48 (35-105) U/L Albumin 3.5 3.2 L (3.5-5.2) g/dL Urine 04/15/22 Range/Units 21:00 Urine Color Yellow (Yellow) Urine Appearance Clear (CLEAR) Urine pH 5 (5-7) Ur Specific [place] 1.025 (1.005-1.030) Urine Protein Neg (Negative) Urine Glucose (UA) Norm (Normal) Urine Ketones Negative (Negative) Urine Nitrate Negative (Negative) Urine Bilirubin Neg (Negative) Ur Leukocyte Esterase Negative (Negative) Urine RBC 5-10 H (0-2) /hpf Urine WBC 0-4 H (0-5) /hpf Coags 04/15/22 19:15 PT 13.50 INR 1.00 Cardiac Studies: No Data to Display
[2022-04-16] MEDS: scopolamine 1.5 Patch 1 PATCH TRANSDERMA (15:08)
[2022-04-16] MEDS: sodium chloride 0.9% 1,000 ML 30 ML IV (15:09)
[2022-04-16] MEDS: ceFAZolin 2,000 MG in sodium chloride 0.9% (plus) 50 ML 100 MG IV (16:11)
--- NOTE | 2022-04-16 17:05 | XR_ITS ---
WS: [id number] Exam: XR hip RT 2-3V wo/w pel* [id number] Date/Time of Exam: 04/16/2022 5:05 PM Reason For Exam: OR C-ARM PICS Comparison 04/15/2022. Intraoperative images of the right hip and parts of the right femur are submitted for evaluation. The images depict internal orthopedic fixation involving a comminuted intertrochanteric fracture of t he right hip. A femoral neck screw and long intramedullary maría stabilize the fracture. Alignment is a ppears to be satisfactory for healing.
--- NOTE | 2022-04-16 17:16 | PM.OP ---
Operative Report Date of procedure: April 16, 2022 Pre-op diagnosis: Preop Diagnosis Right subtrochanteric hip fracture Post-op diagnosis: Same Procedure done: Open reduction internal fixation right hip with intramedullary device Implants: Tavon Gamma nail right 11 mm x 380 mm, 10.5mm by 90 lag screw Pathology: none sent Surgeon: Harjit Elizabeth Anesthesia: General Estimated blood loss (mL): 200 Condition: stable Disposition: PACU Brief History: The patient is a 76-year-old female who sustained a reverse obliquity right intertrochanteric hip fracture as a result of a fall at home. She is taken to the operating room for definitive surgical stabilization to allow resumption of weightbearing and control pain. Due to underlying osteopenia and the reverse obliquity configuration the intramedullary device was chosen Procedure: The patient was taken to the operating room. They were given 1 g of Ancef. They were positioned on the fracture table with the lower extremity in gentle traction. A timeout was performed. A 2 cm long incision was made proximal to the greater trochanter scalpel blade. Dissection was carried down to tip the greater trochanter. A guidepin was passed manually from the tip of the trochanter down the shaft. The proximal reamer was utilized to open up the proximal canal. Canal was narrow reason requiring reaming. A guidepin was placed in sequential reaming was Accomplished up to 12.5 mm an 11 mm by 380 Tavon gamma nail was passed down the canal without difficulty. Under visualization of fluoroscopy a guidepin was driven up into the head and neck at 125? angle. It was measured at 90 mm in length and a lag screw similar length was then placed and locked into place with the proximal locking screw. As good diaphyseal fit was obtained distally distal locking was performed intraoperative imaging was obtained verifying satisfactory position of the hardware and reduction of the fracture. Deep tissues were closed with 0 Vicryl as were subcutaneous tissues. The skin was closed with running 4-0 subcutaneous Monocryl suture. Sterile dressings were applied. The patient was extubated and taken to recovery room in stable condition.
[2022-04-16] MEDS: docusate sodium 100 mg Capsule PO (18:06)
[2022-04-16] MEDS: HYDROcodone-acetaminophen 5-325 mg Tablet 1 TAB PO (18:47)
--- NOTE | 2022-04-16 20:00 | ANE.PACU2 ---
Inpatient post-anesthesia follow up: Airway intact: Yes Vital signs: Temperature 98.4 F Pulse Rate 71 Respiratory Rate 17 Blood Pressure 110/68 Pulse Oximetry 94 Oxygen Delivery Me thod Nasal Cannula Oxygen Flow Rate 2 Fraction of Inspir ed Oxygen Hydration adequate: Yes Nausea and vomiting: No Pain level: 1 Mental status: Baseline
[2022-04-16] MEDS: cefTRIAXone 1,000 MG in sodium chloride 0.9% (plus) 50 ML 100 MG IV (21:51)
[2022-04-17] VITALS (61 sets, daily range): BP systolic 95–135; BP diastolic 57–70; PULSE 71–87; RESP 5–44; TEMP 36.4–36.9; O2SAT 90–98
[2022-04-17 05:15] LABS: Basophils % 0.1 %; Hematocrit 26.9 % (37.0-47.0); Hemoglobin 8.6 g/dL (11.5-15.3); Lymphocytes # 1.4 10^3/uL (0.8-4.8); Lymphocytes % 9.6 %; Mean Corpuscular Hemoglobin 30.7 pg (28.0-34.0); Mean Corpuscular Volume 96.1 fl (81-99); Monocytes # 0.9 10^3/uL (0.2-0.9); Monocytes % 5.8 %; Neutrophils # 12.49 10^3/uL (1.8-7.7); Neutrophils % 83.7 %; Nucleated Red Blood Cells % 0 %; Platelet Count 228 10^3/cmm (130-400); White Blood Count 14.9 10^3/uL (4.0-10.0)
[2022-04-17] MEDS: enoxaparin 40 mg/0.4 mL Syringe SUBCUT (05:31)
[2022-04-17 05:48] LABS: Anion Gap 14.5 (5-19); Blood Urea Nitrogen 16 mg/dL (8-23); Carbon Dioxide 23 mmol/L (22-29); Chloride 102 mmol/L (98-107); Creatinine Clr Calc Pharmacy 47.4969; Glucose 132 mg/dL (65-115); Osmolality Calculated 283 mOsm/kg (285-295); Potassium 4.5 mmol/L (3.5-5.1); Sodium 135 mmol/L (136-145)
--- NOTE | 2022-04-17 08:00 | XR_ITS ---
WS: [id number] Exam: XR chest 1V portable [id number] Date/Time of Exam: 04/17/2022 8:12 AM Reason For Exam: sob Comparison 04/15/2022. The lungs are clear and fully expanded. Normal cardiomediastinal silhouette. Regional bony elements a re intact. Surgical clips along the left axilla. XR/XR chest 1V portable [id number] IMPRESSION: 1. No acute cardiopulmonary process.
[2022-04-17] MEDS: cyanocobalamin 1,000 mcg/mL SDV 1000 MCG IM (09:04)
[2022-04-17] MEDS: HYDROcodone-acetaminophen 5-325 mg Tablet PO ×2 (09:05→13:15)
[2022-04-17] MEDS: docusate sodium 100 mg Capsule PO ×2 (09:05→18:07)
[2022-04-17] MEDS: nicotine 14 mg Patch 1 PATCH TRANSDERMA (09:13)
[2022-04-17] MEDS: sucralfate 1 gm Tablet PO ×2 (09:16→20:39)
[2022-04-17] MEDS: pantoprazole 40 mg SDV IVP ×2 (09:19→20:39)
[2022-04-17 10:02] LABS: Basophils % 0.1 %; Hematocrit 25.9 % (37.0-47.0); Hemoglobin 8.3 g/dL (11.5-15.3); Lymphocytes # 1.8 10^3/uL (0.8-4.8); Lymphocytes % 13.6 %; Mean Corpuscular Volume 96.6 fl (81-99); Monocytes # 0.8 10^3/uL (0.2-0.9); Monocytes % 6.1 %; Neutrophils # 10.71 10^3/uL (1.8-7.7); Neutrophils % 79.3 %; Nucleated Red Blood Cells % 0 %; Platelet Count 251 10^3/cmm (130-400); Red Blood Count 2.68 10^6/uL (4.1-5.3); Red Cell Distribution Width 12.1 % (12.1-15.1); White Blood Count 13.5 10^3/uL (4.0-10.0)
[2022-04-17 10:03] LABS: Erythrocyte Sedimentation Rate 3 mm/hr (0-15)
[2022-04-17 10:28] LABS: Alanine Aminotransferase 13 U/L (0-33); Albumin Level 2.9 g/dL (3.5-5.2); Alkaline Phosphatase 45 U/L (35-105); Aspartate Amino Transferase 17 U/L (0-32); C Reactive Protein 122.4 mg/L (0.0-4.9); Ferritin 292 ng/mL (15-150); Globulin 2.4 g/dL (1.3-4.6); Iron 32 ug/dL (37-145); Lipase 7 U/L (13-60); Total Bilirubin 0.5 mg/dL (0.15-1.2); Total Protein 5.3 g/dL (6.6-8.7)
[2022-04-17 10:40] LABS: Folate Level 6.8 ng/mL (4.8-37.3)
[2022-04-17 10:44] LABS: LAB Peripheral Smear Sent for Review
[2022-04-17 10:51] LABS: Vitamin B12 > 2000 pg/mL (232-1245)
--- NOTE | 2022-04-17 11:24 | USCV_ITS ---
Nancy Stockton Age: 76 Gender: F : 1945 Exam Date: 04/17/2022 14:45 Ordering Phys: Jessee Beebe MD Technologist: ROMELIA Exam Location: [facility] [place] Indication: BLE PAIN HISTORY: Lower extremity pain. PROCEDURES: Venous duplex imaging was performed in bilateral lower extremities. The following venous structures were evaluated: common femoral vein, profunda vein, proximal portion of the greater saphenous vein, superficial femoral vein, and the popliteal vein. In addition, the posterior tibial and peroneal trunk were evaluated. Serial compression, augmentation maneuvers, and spectral Doppler flow evaluation were performed. FINDINGS: Left PTV at calf non-compressible. All other veins appear patent, bilat. Verbal Prelim given to Nurse Smalls CONCLUSIONS Occlusive DVT left Posterior tibial vein at calf Remainder of veins are patent bilaterally. Verbal Prelim given to Nurse Smalls at time of exam Deven Ortiz MD (Electronically Signed) Final Date: 17 April 2022 15:39 S
--- NOTE | 2022-04-17 13:03 | PM.PN ---
Subjective Subjective: Describes expected pain. Progress slow with therapy Vitals/I&O/Wt Last Vital Signs Temp 98.3 F 04/17/22 08:00 Pulse 82 04/17/22 08:00 Resp 18 04/17/22 08:00 BP 109/69 04/17/22 08:00 Pulse Ox 93 04/17/22 08:00 O2 Del Method 04/17/22 08:00 O2 Flow Rate 2 04/17/22 00:30 04/16/22 04/17/22 04/17/22 22:59 06:59 14:59 Intake Total 1812.333 / 2072.333 240 / 240 Output Total 550 / 550 250 / 800 Balance 1262.333 / 1522.333 -250 / 1272.333 240 / 240 Weight last 48 hrs Weight 155 lb 6.4 oz Weight 151 lb 1.6 oz Weight 140 lb Physical Exam Narrative: Right hip incision clean and dry Expected swelling right thigh Urinary Catheter Management: Corral: Cath Placed During This Visit: yes, but has since been removed by the nurse Reason for Continuing Indwelling Catheter: Perioperative Use in Selected Surgeries Urinary Catheter Date of Insertion: 04/15/22 Urinary Catheter Time of Insertion: 21:00 Date Urinary Catheter Removed: 04/17/22 Time Urinary Catheter Discontinued: 05:36 Data 04/17/22 09:30 04/17/22 04:46 Micro: Microbiology 04/17/22 09:35 Blood Culture - Preliminary Blood SPECIMEN COLLECTED 04/17/22 09:30 Blood Culture - Preliminary Blood SPECIMEN COLLECTED A&P Assessment and plan (1) Intertrochanteric fracture of right hip: (2) 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 Anticipate need for senior living. 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
[2022-04-17] MEDS: ondansetron 2 mg/ML SDV 2 mL 4 MG IVP (13:14)
[2022-04-17] MEDS: iron sucrose 200 MG in sodium chloride 0.9% (100 ml) 100 ML 220 MG IV (13:15)
--- NOTE | 2022-04-17 16:42 | CTR_ITS ---
PROCEDURE INFORMATION: Exam: CTA Chest With Contrast Exam date and time: 04/18/2022 3:52 AM Age: 76 years old Clinical indication: Prior surgery; Surgery date: Post-operative (0-2 days); Surgery type: RT femoral maría 04/17/2022. Double mastectomy; Patient HX: Elevated d dimer. Postive lower ext dvt. Anemia. RT femoral maría placed yesterday. History of breast cancer. ; Additional info: Dvt, hypoxia, R/O pe TECHNIQUE: Imaging protocol: Computed tomographic angiography of the chest with contrast. 3D rendering (Not supervised by radiologist): MIP and/or 3D reconstructed images were created by the technologist. Total images: [id number] Radiation optimization: All CT scans at this facility use at least one of these dose optimization techniques: automated exposure control; mA and/or kV adjustment per patient size (includes targeted exams where dose is matched to clinical indication); or iterative reconstruction. Contrast material: OMNI 350; Contrast volume: 100 ml; Contrast route: INTRAVENOUS (IV); REPORTING DATA: Count of CT and Cardiac NM exams in prior 12 months: This patient has received 0 known CTs and 0 known cardiac nuclear medicine studies in the 12 months prior to the current study. COMPARISON: CR XR chest 1V portable [id number] 04/17/2022 8:17 AM RADIATION DOSE METRICS: Total DLP (mGy-cm): 944.68 FINDINGS: Pulmonary arteries: Pulmonary embolus extending from the main left pulmonary artery into the anterior segmental pulmonary artery of the left upper lobe. Additional pulmonary embolus in the anterior basilar segment of bilateral lower lobes. Aorta: Unremarkable. No aortic aneurysm. No aortic dissection. Other arteries: Moderate atherosclerotic disease is evident. Thyroid: Non-specific heterogeneous thyroid. Lungs: Mild centrilobular and paraseptal emphysematous changes are present. Pleural spaces: There is biapical pleural thickening, likely related to chronic pleural-parenchymal scarring. Heart: Unremarkable. No cardiomegaly. No pericardial effusion. Heart RV/LV ratio: The RV/LV ratio is normal, measuring 0.9. Lymph nodes: Calcified mediastinal and hilar nodes noted. Bones/joints: Spinal degenerative changes are evident. Soft tissues: Status post bilateral mastectomies. COMMENTS: In the absence of a history or active diagnosis of lung cancer, it is recommended that this patient with emphysema be evaluated for enrollment in a low dose CT lung cancer screening program. PROCEDURE INFORMATION: Exam: CT Abdomen And Pelvis With Contrast Exam date and time: 04/18/2022 3:52 AM Age: 76 years old Clinical indication: Prior surgery; Surgery date: Post-operative (0-2 days); Surgery type: RT femoral maría 04/17/2022. Double mastectomy; Patient HX: Elevated d dimer. Postive lower ext dvt. Anemia. RT femoral maría placed yesterday. History of breast cancer. ; Additional info: Dvt, hypoxia, R/O pe TECHNIQUE: Imaging protocol: Computed tomography of the abdomen and pelvis with contrast. Radiation optimization: All CT scans at this facility use at least one of these dose optimization techniques: automated exposure control; mA and/or kV adjustment per patient size (includes targeted exams where dose is matched to clinical indication); or iterative reconstruction. Contrast material: OMNI 350; Contrast volume: 100 ml; Contrast route: INTRAVENOUS (IV); REPORTING DATA: Count of CT and Cardiac NM exams in prior 12 months: This patient has received 0 known CTs and 0 known cardiac nuclear medicine studies in the 12 months prior to the current study. COMPARISON: OT XR hip RT 2-3V wo/w pel* [id number] 04/16/2022 5:05 PM RADIATION DOSE METRICS: Total DLP (mGy-cm): 944.68 FINDINGS: Liver: Normal. No mass. Gallbladder and bile ducts: Cholelithiasis is present without cholecystitis. No gallbladder wall thickening or pericholecystic fluid collection. Pancreas: Normal. No ductal dilation. Spleen: Incidental splenic granulomata are noted. Adrenal glands: Normal. No mass. Kidneys and ureters: Bilateral parapelvic renal cysts. Stomach and bowel: Well-formed stool distends the rectum but without evidence of rectal wall inflammation. Colonic diverticulosis is present without diverticulitis. Appendix: No evidence of appendicitis. Intraperitoneal space: Unremarkable. No free air. No significant fluid collection. Vasculature: Moderate atherosclerotic disease is evident. Dilated infrarenal abdominal aorta measured at 2.6 cm. Follow-up imaging in 5 years is recommended. Incidental phleboliths noted. Lymph nodes: Unremarkable. No enlarged lymph nodes. Urinary bladder: Unremarkable as visualized. Reproductive: Unremarkable as visualized. Bones/joints: Status post recent right femoral neck screw and intramedullary maría placement for comminuted intertrochanteric fracture. Adjacent fluid/hemorrhage and subcutaneous emphysema are expected findings circumferentially around the right hip. There is however large hematoma laterally and extending into the right gluteal musculature measuring 7.0 x 5.4 x 7.9 cm. Soft tissues: See Bones/joints finding. CT/CT angio chest w abd pel w con IMPRESSION: 1. Pulmonary embolus extending from the main left pulmonary artery into the anterior segmental pulmonary artery of the left upper lobe. Additional pulmonary embolus in the anterior basilar segment of bilateral lower lobes. 2. No evidence of right ventricular strain. 3. Mild centrilobular and paraseptal emphysematous changes are present. IMPRESSION: 1. Dilated infrarenal abdominal aorta measured at 2.6 cm. Follow-up imaging in 5 years is recommended. 2. Well-formed stool distends the rectum but without evidence of rectal wall inflammation. 3. Status post recent right femoral neck screw and intramedullary maría placement for comminuted intertrochanteric fracture. Adjacent fluid/hemorrhage and subcutaneous emphysema are expected findings circumferentially around the right hip. There is however large hematoma laterally and extending into the right gluteal musculature measuring 7.0 x 5.4 x 7.9 cm. 4. Cholelithiasis is present without cholecystitis. No gallbladder wall thickening or pericholecystic fluid collection. COMMENTS: Consistent with the [employer]'s Incidental Findings Committee white paper (J Am Douglas Radiol 2018): Any incidental renal lesion less than 1 cm or classified as too small to characterize, or any incidental cystic renal lesion characterized as simple-appearing, is likely benign. No follow-up imaging is recommended for these lesions per consensus recommendations based on imaging criteria.
--- NOTE | 2022-04-17 16:42 | ECG_ITS ---
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 Measurements Intervals [place] Rate: 76 P: 69 TN: 152 QRS: 60 QRSD: 90 T: 69 QT: 367 QTc: 414 Interpretive Statements SINUS RHYTHM Compared to ECG 04/15/2022 19:21:32 No significant changes Electronically Signed On 04-17-2022 17:32:20 DEPUTY COMMISSIONER by Dwain Borja M.D. [id number]
--- NOTE | 2022-04-17 16:43 | PM.PN ---
Subjective Subjective: Patient was seen this morning, sitting up in a chair, she denies any fevers, no chills she does have a cough, she has had a history of breast cancer, with mastectomy, mastectomy site looks clean and dry, no calf pain, no calf swelling, she has persistent leukocytosis, of unclear etiology, she does report increased shortness of breath, no history of COPD but she has not seen a physician in some time, no formal diagnosis of COPD she is requiring 2 L, no chest pain, no palpitations Vitals/I&O/Wt Last Vital Signs Temp 97.6 F 04/17/22 12:00 Pulse 78 04/17/22 12:00 Resp 18 04/17/22 12:00 BP 122/65 04/17/22 12:00 Pulse Ox 92 04/17/22 12:00 O2 Del Method 04/17/22 12:00 O2 Flow Rate 2 04/17/22 00:30 04/17/22 04/17/22 04/17/22 06:59 14:59 22:59 Intake Total 710 / 710 Output Total 250 / 800 Balance -250 / 1272.333 710 / 710 Weight last 48 hrs Weight 70.488 kg Weight 68.538 kg Weight 63.503 kg Physical Exam Const: COMMON NORMALS: no acute distress and patient oriented x3 Neck/C-Spine: COMMON NORMALS: no JVD Resp: COMMON NORMALS: normal respiratory effort, No retractions, No use of accessory muscles and clear to auscultation bilaterally AUSCULTATION: clear to auscultation bilaterally Cardio: COMMON NORMALS: no JVD, regular rate, regular rhythm, S1 normal heart sound present and S2 normal heart sound present RATE: regular rate RHYTHM: regular rhythm HEART SOUNDS: S1 normal heart sound present and S2 normal heart sound present GI: COMMON NORMALS: Normal to inspection, nondistended, normoactive bowel sounds present and non-tender Extremity: COMMON NORMALS: no pedal edema Neuro: COMMON NORMALS: patient oriented x3 Psych: COMMON NORMALS: mental status grossly normal Urinary Catheter Management: Corral: Cath Placed During This Visit: yes, but has since been removed by the nurse Reason for Continuing Indwelling Catheter: Perioperative Use in Selected Surgeries Urinary Catheter Date of Insertion: 04/15/22 Urinary Catheter Time of Insertion: 21:00 Date Urinary Catheter Removed: 04/17/22 Time Urinary Catheter Discontinued: 05:36 Data 04/17/22 09:30 04/17/22 04:46 Micro: Microbiology 04/17/22 09:35 Blood Culture - Preliminary Blood SPECIMEN COLLECTED 04/17/22 09:30 Blood Culture - Preliminary Blood SPECIMEN COLLECTED A&P Assessment and plan (1) Acute anemia: - Hemoglobin 8.3 -We will repeat hemoglobin -If it continues to fall will need to transfuse to maintain hemoglobin is greater than 7 -If he has stabilized it could be postoperative -She does have evidence of iron deficiency anemia, but has not had any bloody or black stool, no hemodynamic compromise -So the 2 options I have is to do a trial of heparin drip therapy, monitor hemoglobin closely, if her hemoglobin drops then we have given it a good enough trial and we would have to go ahead and place an IVC filter -However if her hemoglobin remained stable, it could just be postoperative state, and she could then then may be tolerated full dose anticoagulant -Further medical intervention based on clinical progress and further testing (2) Iron deficiency anemia: - Has evidence of iron deficiency anemia -Iron 8.3, MCV 96.6 -Iron 32 -Ferritin elevated to 92 but likely acute phase reaction from surgery -Hemoccult stool pending -1 dose IV Venofer (3) DVT (deep venous thrombosis): - Venous ultrasound shows Occlusive DVT left Posterior tibial vein at calf -For now continue SCDs -For now cannot anticoagulation due to anemia as above -For now monitor hemoglobin -CT angiogram of the chest ordered as above -Heparin drip therapy versus IVC filter based upon further work-up (4) Hypoxia: (5) Closed right hip fracture: Orthopedic has been consulted from the ER. Status post open reduction internal fixation with intramedullary device, gamma nail, lag screw Alderpoint 5 mg to 8 hourly as needed. Physical therapy, anticoagulation as per orthopedic team. Postoperatively monitor hemoglobin. (6) Leukocytosis: No actual signs of current infection UA relatively unremarkable for UTI, although kept on Rocephin Chest x-ray no focal pneumonia Pro-Aj within normal limits CRP 122.4, could be postsurgical Does have evidence of DVT, likely etiology of leukocytosis Peripheral smear We will monitor Lymphoma panel Plan Left breast cancer on Oral anastrozole. Check vitamin D levels Vitamin B12 deficiency, will replace Analgesia: Alderpoint 5 mg every 8 hourly as needed, morphine 1 mg every 4 hourly as needed Glycemic control: Not needed. Nutrition: Regular diet, n.p.o. after midnight. CODE STATUS: Full code PUD prophylaxis: Famotidine every 12 hourly DVT prophylaxis: Foot pumps, SCDs. Medical prophylaxis contraindicated in setting of possible OR within next 24 hours. Discharge planning: Home versus SNF depending on physical therapy postoperatively. Ad[facility] to [facility] This documentation was created by [employer] projection technician software. Every effort was made to ensure accuracy of projection technician. Any obvious errors or omissions should be clarified with the author of the document. Attestations Medical Necessity Statement*: Patient requires hospitalization for postoperative anemia, DVT, leukocytosis Diagnoses Acute anemia D64.9 Iron deficiency anemia D50.9 DVT (deep venous thrombosis) I82.409 Hypoxia R09.02 Closed right hip fracture S72.001A Leukocytosis D72.829
[2022-04-17 17:22] LABS: Basophils % 0.1 %; Hematocrit 23.1 % (37.0-47.0); Hemoglobin 7.6 g/dL (11.5-15.3); Lymphocytes # 1.5 10^3/uL (0.8-4.8); Lymphocytes % 9.3 %; Mean Corpuscular HGB Conc 32.9 g/dL (30.0-36.0); Mean Corpuscular Volume 94.3 fl (81-99); Monocytes # 0.7 10^3/uL (0.2-0.9); Monocytes % 4.5 %; Neutrophils # 13.32 10^3/uL (1.8-7.7); Neutrophils % 85.1 %; Nucleated Red Blood Cells % 0 %; Platelet Count 223 10^3/cmm (130-400); Red Blood Count 2.45 10^6/uL (4.1-5.3); White Blood Count 15.7 10^3/uL (4.0-10.0)
[2022-04-17 17:42] LABS: D Dimer 2.55 ug/mIFEU (0-0.59)
--- NOTE | 2022-04-17 18:00 | PM.CCNAC ---
Critical Care Event Note The high probability of a clinically significant, sudden or life threatening deterioration of the patient's [] system(s) required my full and direct attention, intervention and personal management. The critical care time is as shown. This time is in addition to time spent performing any reported procedures but includes the following: [x] Data and vital sign review and interpretation [x] Patient assessment, examination and intervention [x] Documentation [x] Medication orders and management Critical Care Time Code activated: No Critical Care Time (min): 30 Additional information about critical care time: This is critical care event note from 04/17/2022 -Patient was examined multiple times yesterday late in the evening at 5 PM, then again at 6 PM -Her hemoglobin continues to drop, down to 7.1 -She denies any lightheadedness, no dizziness -No hemodynamic compromise no bloody or black stools -I looked at the surgical site there is some bruising, -Given her acute drop in her hemoglobin I am very worried that she might be bleeding from somewhere, possibly bleeding at her surgical site, possibly retroperitoneal bleed I have spoken to Dr. Larry, will monitor closely -The plan right now is to do a stat CT scan abdomen pelvis with IV contrast to look for acute bleeding -I am going to give her 1 unit PRBC -Monitor hemodynamics very closely -In addition given her newly found left lower extremity DVT her hypoxia on I am very concerned that she might have developed embolism from her DVT -This is certainly a complicated situation in terms of how to anticoagulate her now given that she has a DVT and now she is dropped and she is developed acute anemia -I spoke to Dr. Herrera about the difficulty of the situation -And I spoke to Dr. Nicole of the difficulty of the situation -The plan is for now and I have gone over this in detail with nursing staff -Is to see what the CT scan abdomen pelvis shows a monitor the hemoglobin trend -If there is no acute bleeding on the CAT scan abdomen pelvis on the surgical side and her hemoglobin remained stable then we can maybe try anticoagulation a low-dose heparin without a bolus -However if she does have evidence of bleed, then we will have to acutely manage that she might require more units of PRBC might require ICU admission, and we might have to consider IVC filter placement -I have gone over this in detail with patient, she voiced understanding, all questions answered, agreed to proceed Coding Level of Care Code Acute Code for Chg Fwd
[2022-04-17 18:06] LABS: Troponin(5th) Baseline 9 ng/L (0-10)
[2022-04-17] MEDS: polyethylene glycol 3350 Pkt 17 gm PO (18:07)
[2022-04-17] MEDS: sodium chloride 0.9% 1,000 ML 100 ML IV (18:07)
[2022-04-17 18:27] LABS: Lactate (Lactic Acid level) 2.3 mmol/L (0.5-2.2)
[2022-04-17] MEDS: cefTRIAXone 1,000 MG in sodium chloride 0.9% (plus) 50 ML 100 MG IV (20:39)
--- NOTE | 2022-04-17 21:01 | ECG_ITS ---
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 Measurements Intervals [place] Rate: 83 P: 70 IA: 161 QRS: 60 QRSD: 84 T: 68 QT: 354 QTc: 418 Interpretive Statements SINUS RHYTHM Compared to ECG 04/17/2022 17:29:35 No significant changes Electronically Signed On 04-17-2022 22:51:27 GUM ROLLING MACHINE OPERATOR by Dwain Borja M.D. [id number]
--- NOTE | 2022-04-17 21:02 | ECG_ITS ---
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 Measurements Intervals [place] Rate: 83 P: 73 TN: 154 QRS: 62 QRSD: 87 T: 71 QT: 355 QTc: 418 Interpretive Statements SINUS RHYTHM WITH OCCASIONAL VENTRICULAR PREMATURE COMPLEXES Compared to ECG 04/17/2022 21:01:56 Ventricular premature complex(es) now present Electronically Signed On 04-17-2022 22:51:24 DATA ANALYSIS MANAGER by Dwain Borja M.D. [email or web address] good [email or web address]/[id number]
[2022-04-17 22:22] LABS: Troponin 5 2HR 6.77 ng/L (0-10)
[2022-04-17 22:26] LABS: Troponin 5 2HR Delta -2.23 ABS# (0-10)
[2022-04-18] VITALS (20 sets, daily range): BP systolic 114–160; BP diastolic 52–72; PULSE 77–92; RESP 15–19; TEMP 36.4–37.3; O2SAT 90–99
[2022-04-18 00:34] LABS: Troponin 5 6HR 6.92 ng/L (0-10)
[2022-04-18 00:54] LABS: Troponin 5 6HR Delta -0.15 ng/L (0-12)
[2022-04-18] MEDS: iohexol 350 mg/mL 500 mL Btl (per mL) IV (04:01)
[2022-04-18 05:06] LABS: Basophils % 0.2 %; Eosinophils % 0.3 %; Hematocrit 24.2 % (37.0-47.0); Hemoglobin 7.9 g/dL (11.5-15.3); Lymphocytes # 1.7 10^3/uL (0.8-4.8); Lymphocytes % 16.4 %; Mean Corpuscular HGB Conc 32.6 g/dL (30.0-36.0); Mean Corpuscular Hemoglobin 31.1 pg (28.0-34.0); Mean Corpuscular Volume 95.3 fl (81-99); Mean Platelet Volume 10.7 fL (7.4-10.4); Monocytes # 0.8 10^3/uL (0.2-0.9); Monocytes % 7.8 %; Neutrophils # 7.75 10^3/uL (1.8-7.7); Neutrophils % 73.2 %; Nucleated Red Blood Cells % 0 %; Platelet Count 181 10^3/cmm (130-400); Red Blood Count 2.54 10^6/uL (4.1-5.3); Red Cell Distribution Width 12.7 % (12.1-15.1); White Blood Count 10.6 10^3/uL (4.0-10.0)
[2022-04-18 06:10] LABS: Slide Review Slide Review Perform
[2022-04-18 06:25] LABS: Lactate (Lactic Acid level) 1.3 mmol/L (0.5-2.2)
[2022-04-18 06:35] LABS: Alanine Aminotransferase 10 U/L (0-33); Alkaline Phosphatase 47 U/L (35-105); Blood Urea Nitrogen 14 mg/dL (8-23); C Reactive Protein 96.9 mg/L (0.0-4.9); Calcium 7.9 mg/dL (8.5-10.5); Carbon Dioxide 23 mmol/L (22-29); Chloride 101 mmol/L (98-107); Globulin 1.8 g/dL (1.3-4.6); Glucose 115 mg/dL (65-115); Magnesium 2.2 mg/dL (1.7-2.3); NT Pro B Type Natriuretic Pept 214 pg/mL (0-450); Osmolality Calculated 281 mOsm/kg (285-295); Phosphorus 2.1 mg/dL (2.5-4.5); Sodium 135 mmol/L (136-145); Total Bilirubin 0.7 mg/dL (0.15-1.2); Total Protein 4.8 g/dL (6.6-8.7)
[2022-04-18 06:52] LABS: Anion Gap 15.4 (5-19); Aspartate Amino Transferase 18 U/L (0-32); Creatine Phosphokinase 424 U/L (26-192); Potassium 4.4 mmol/L (3.5-5.1)
--- NOTE | 2022-04-18 06:54 | PM.PN ---
Subjective Subjective: Pain is better. No new complaints Vitals/I&O/Wt Last Vital Signs Temp 98.4 F 04/18/22 04:45 Pulse 90 04/18/22 04:45 Resp 17 04/18/22 04:45 BP 120/68 04/18/22 04:45 Pulse Ox 90 04/18/22 04:45 O2 Del Method 04/17/22 12:00 O2 Flow Rate 2 04/17/22 00:30 04/17/22 04/17/22 04/18/22 14:59 22:59 06:59 Intake Total 710 / 710 530 / 1240 240 / 1480 Balance 710 / 710 530 / 1240 240 / 1480 Weight last 48 hrs Weight 170 lb 9.6 oz Weight 155 lb 6.4 oz Physical Exam Narrative: Right hip dressing clean and dry. Diffuse swelling proximal thigh, not entirely typical for a severely comminuted intratrochanteric hip fracture. Urinary Catheter Management: Corral: Cath Placed During This Visit: yes, but has since been removed by the nurse Reason for Continuing Indwelling Catheter: Perioperative Use in Selected Surgeries Urinary Catheter Date of Insertion: 04/15/22 Urinary Catheter Time of Insertion: 21:00 Date Urinary Catheter Removed: 04/17/22 Time Urinary Catheter Discontinued: 05:36 Data 04/18/22 04:20 04/18/22 05:44 Micro: Microbiology 04/17/22 09:35 Blood Culture - Preliminary Blood SPECIMEN COLLECTED 04/17/22 09:30 Blood Culture - Preliminary Blood SPECIMEN COLLECTED A&P Assessment and plan (1) Intertrochanteric fracture of right hip: (2) Status post open reduction and internal fixation of fracture with nonunion: Fracture stabilized for full weight bearing (3) Anemia due to blood loss: Received 2 units of packed red blood. Fractcure site hematoma not atypical with this fracture. I doubt we will see further signifcant decreases in hgb. (4) Pulmonary embolus: I discussed anticoagulant filter with medicine. Patient can be anticoagulated once hemoglobin stable. With pulmonary emboli more urgent intervention such as a Sandra filter is a consideration. Attestations Medical Necessity Statement*: As per medicine. 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
[2022-04-18 07:11] LABS: CKMB 3.2 ng/mL (0-5.34)
[2022-04-18] MEDS: pantoprazole 40 mg SDV IVP ×2 (07:52→21:15)
[2022-04-18] MEDS: docusate sodium 100 mg Capsule PO (07:52)
[2022-04-18] MEDS: sucralfate 1 gm Tablet PO ×2 (07:52→21:15)
[2022-04-18] MEDS: nicotine 14 mg Patch 1 PATCH TRANSDERMA (07:52)
[2022-04-18] MEDS: cyanocobalamin 1,000 mcg/mL SDV 1000 MCG IM (07:53)
[2022-04-18] MEDS: HYDROcodone-acetaminophen 5-325 mg Tablet PO ×2 (08:07→21:38)
[2022-04-18] MEDS: ondansetron 2 mg/ML SDV 2 mL 4 MG IVP (08:08)
--- NOTE | 2022-04-18 08:48 | P.CONIM_ITS ---
Providers/Reason For Consult Consulting Physician/Specialty*: Dwain Borja MD/ Interventional Cardiology Reason for Consult*: IVC filter placement/ Pulmonary embolism Requesting Physician: Dr Beebe Attending Physician: Jessee Beebe MD History of Present Illness History of Present Illness Nancy Stockton is a 76 year old female with past medical history of breast cancer who recently was admitted for right hip fracture after a fall. She developed severe anemia and is currently requiring a blood transfusion. Has a surgical site hematoma. She was found to have left popliteal vein DVT. Also has a pulmonary embolism. Interventional radiology has been consulted for placement of IVC filter as currently cannot be anticoagulated. She has dyspnea on exertion. However states at rest she is not having much shortness of breath. CT scan does not show RV strain. Troponin has not trended up. Review of Systems General: Reports: 10 or more systems reviewed and unremarkable except in HPI and below Const: Denies: fever(s), chills, body aches, change in appetite, change in weight, malaise, night sweats, diaphoresis, change in sleep pattern, daytime sleepiness or snoring Eyes: Denies: change in vision, blurry vision, photophobia, eye discomfort or eye discharge ENMT: Denies: throat pain, enlarged tonsils, hoarseness, mouth pain, oral sores, dry mouth, tinnitus, nasal congestion or post nasal drip Card: Denies: chest pain, palpitations, irregular heart rhythm, edema, sw elling of feet/ankles, lightheadedness, syncope, pre-syncope, dyspnea on exertion, orthopnea, leg pain with exertion or acrocyanosis Resp: Reports: dyspnea (Dyspnea on exertion); Denies: productive cough, non-productive cough, wheezing, stridor, pain on inspiration, change in phlegm color, hemoptysis or chest congestion GI: Denies: abdominal pain, nausea, vomiting, hematemesis, coffee ground emesis, dysphagia, heartburn, diarrhea, constipation, bloating, GI cramping, change in bowel habits, pain on defecation, hematochezia or melena : Denies: flank pain, dysuria, urinary frequency, urinary urgency, urinary hesitancy, nocturia or hematuria Musc: Denies: neck pain, back pain, extremity pain, joint pain, joint swelling, joint redness, joint stiffness or limited range of motion Neuro: Denies: headache(s), numbness in extremities, weakness in extremities, sensory changes, lack of coordination, difficulty walking, frequent falls, dizziness, vertigo, confusion, Slurred speech present, difficulty communicating thoughts or seizure-like activity Psych: Denies: anxiety, depression, mood swings, panic attacks, hopelessness or irritability Endo: Denies: polyuria, polydipsia, tired all the time, cold intolerance, excessive sweating, flushing or heat intolerance Gopal/Lymph: Denies: easy bruising or easy bleeding All/Imm: Denies: tongue swelling, facial swelling or acute wheezing Medications/Allergies Home Medications Medication Instructions Recorded Confirmed Last Taken Type anastrozole 1 mg tablet (Arimidex) 1 mg PO DAILY #90 tabs 01/25/22 04/15/22 04/14/22 23:00 Rx Prosthetic Bra #1 ea 01/30/22 04/16/22 Unknown Rx Allergies Allergy/AdvReac Type Severity Reaction Status Date / Time No Known Allergies Allergy Verified 01/30/22 10:32 Current Medications Generic Name Dose Route Start Last Admin Trade Name Freq PRN Reason Stop Dose Admin Hydrocodone Bitart/Acetaminophen 1 - 2 tab 04/16/22 17:40 04/18/22 08:07 Hydrocodone-Acetaminophen 5-325 Mg Tablet PO 1 tab Q4H PRN Administration BREAKTHROUGH PAIN Cyanocobalamin 1,000 mcg 04/16/22 09:00 04/18/22 07:53 Cyanocobalamin 1,000 Mcg/Ml Sdv IM 04/19/22 08:59 1,000 mcg DAILY BRENT Administration Docusate Sodium 100 mg 04/16/22 09:00 04/18/22 07:52 Docusate Sodium 100 Mg Capsule PO 100 mg BID BRENT Administration Ceftriaxone Sodium 1,000 mg/ 50 mls @ 100 mls/hr 04/15/22 21:30 04/17/22 22:06 Sodium Chloride IV Infused Q24H BRENT Infusion Protocol Sodium Chloride 1,000 mls @ 100 mls/hr 04/17/22 16:45 04/17/22 18:07 Sodium Chloride 0.9% IV 100 mls/hr .Q10H BRENT Administration Morphine Sulfate 1 mg 04/15/22 21:26 04/16/22 14:01 Morphine 4 Mg/Ml Sdv 1 Ml IVP 1 mg Q4H PRN Administration SEVERE PAIN Nicotine 1 patch 04/15/22 23:56 04/18/22 07:52 Nicotine 14 Mg Patch TRANSDERMA 1 patch DAILY BRENT Administration Ondansetron HCl 4 mg 04/15/22 21:26 04/18/22 08:08 Ondansetron 2 Mg/Ml Sdv 2 Ml IVP 4 mg Q8H PRN Administration vomiting, or N/V if npo Pantoprazole Sodium 40 mg 04/17/22 08:30 04/18/22 07:52 Pantoprazole 40 Mg Sdv IVP 40 mg Q12H BRENT Administration Sucralfate 1 gm 04/17/22 08:30 04/18/22 07:52 Sucralfate 1 Gm Tablet PO 1 gm Q12H BRENT Administration PFSH Acute PFSH: Medical History Breast cancer Smoker Surgical History History of mastectomy Right - 01/16/2022 Family History Mother CAD (coronary artery disease) Diabetes Father Cancer Prostate Daughter Lung disease Other Hypertension Denies family history of Clotting disorder Dementia Hyperlipidemia Psychiatric illness Chronic kidney disease (CKD) Suicide Anesthesia complication Bleeding disorder Stroke Social History Smoking and tobacco status: current every day smoker (1 ppd, smoked x 50+ years) Alcohol intake: never Vitals/I&O/Wt Last Vital Signs Temp 97.9 F 04/18/22 08:15 Pulse 86 04/18/22 08:15 Resp 17 04/18/22 08:15 BP 116/63 04/18/22 08:15 Pulse Ox 97 04/18/22 08:15 O2 Del Method 04/18/22 08:15 O2 Flow Rate 2 04/18/22 08:15 04/17/22 04/18/22 04/18/22 22:59 06:59 14:59 Intake Total 530 / 1240 240 / 1480 0 / 0 Balance 530 / 1240 240 / 1480 0 / 0 Weight last 48 hrs Weight 170 lb 9.6 oz Weight 155 lb 6.4 oz Physical Exam Narrative: GENERAL: Patient is alert, awake and oriented x3. [] NECK: No jugular vein distension. [] HEENT: No cyanosis. No icterus. No pallor. [] HEART: Regular S1 and S2. No murmur, rub or gallop. [] LUNGS: Clear to auscultate bilaterally. [] ABDOMEN: Soft CENTRAL NERVOUS SYSTEM: Grossly nonfocal. [] EXTREMITIES: Right hip area and thigh are firm Urinary Catheter Management: [place]: Cath Placed During This Visit: yes, but has since been removed by the nurse Reason for Continuing Indwelling Catheter: Perioperative Use in Selected Surgeries Urinary Catheter Date of Insertion: 04/15/22 Urinary Catheter Time of Insertion: 21:00 Date Urinary Catheter Removed: 04/17/22 Time Urinary Catheter Discontinued: 05:36 Data 04/18/22 04:20 04/18/22 05:44 Micro: Microbiology 04/17/22 09:35 Blood Culture - Preliminary Blood SPECIMEN COLLECTED 04/17/22 09:30 Blood Culture - Preliminary Blood SPECIMEN COLLECTED A&P Assessment and plan (1) Pulmonary embolus: (2) Anemia due to blood loss: (3) DVT (deep venous thrombosis): (4) Acute anemia: (5) Intertrochanteric fracture of right hip: Plan And developed acute anemia requiring transfusion. Currently post blood transfusion. She has pulmonary embolism and has left lower extremity DVT as well. Given inability to anticoagulate, interventional cardiology has been consulted for IVC filter placement. Risks and benefits of the procedure have been discussed with the patient. She understands the risks and benefits and wants to proceed. If in future she can be put on anticoagulation, we can consider removal of IVC filter. N.p.o. for now. Thank you for involving us with care of this patient. We will continue to follow. Please call with questions. Consult Attestations Medical Necessity Statement: Care expected to cross 2 midnights Coding Level of Care Code Acute Code for Chg Fwd Diagnoses Pulmonary embolus I26.99 Anemia due to blood loss D50.0 DVT (deep venous thrombosis) I82.409 Acute anemia D64.9 Intertrochanteric fracture of right hip S72.141A
--- NOTE | 2022-04-18 10:06 | W.PM.OPSUD ---
Surgery/Procedure H&P Update DATE OF PROCEDURE: April 18, 2022 DATE H&P PERFORMED: 04/18/22 H&P UPDATE INFORMATION: I have reviewed H&P completed within last 30 days, I have examined patient prior to procedure and No changes to prior documentation PREOP DIAGNOSIS: Pulmonary embolism/ Acute anemia PRIMARY INDICATION FOR PROCEDURE: Pulmonary embolism/ Acute anemia PLANNED PROCEDURE: IVC IVC filter placement PATIENT REASSESSED PRIOR TO SEDATION, WITH NO CHANGE NOTED: Yes PHYSICAL EXAM: alert, oriented x 3, clear to auscultation bilaterally and regular rate & rhythm AIRWAY EVAL/ANESTHESIA PLAN: normal airway, ASA III, Local Anesthesia, Risks, benefits & alternatives of sedation and/or procedure discussed and Patient agrees to continue as planned ADDITIONAL INFORMATION: Moderate sedation
--- NOTE | 2022-04-18 10:27 | PC.SOCIAL ---
Imm update Imm updated with patient at bedside. Copy of page 2 provided. Patient verbalized understanding. Copy in chart initialed, dated and timed.
--- NOTE | 2022-04-18 10:50 | P.PN_ITS ---
Subjective Subjective: - Patient was seen this morning, she is actually getting up to the bedside commode with the help of physical therapy staff -She denies any lightheadedness, no dizziness is on 2 L, no hypotensive epi sodes, no chest pain, no palpitations -She does complain of swelling along her right buttocks, right thigh -I had a detailed discussion with the patient -She was found to have a lower extremity DVT on the left, with bilateral DVTs, -However with her hemoglobin dropping to 7.1 she is needed 2 units of PRBCs, and CAT scan showed a large pocket hematoma measuring 7 x 7.9 cm -Given her age, I am very concerned about recurrent bleeding if I try anticoagulation -This is a certainly difficult situation on the one hand if we try anticoagulation I am worried that she might bleed into her hip again into her gluteus again but on the other hand she does have lower extremity DVT which can embolize and she is already had bilateral PEs, significant PE on the left pulmonary artery -I discussed options are available to her -I discussed option of placing a IVC filter, this would prevent embolization, we could continue mobility would not prevent any future clots but it would prevent embolization as she already has -And then in 1 to 2 weeks, as she is more mobile and that her hematoma resolves, and her hemoglobin stabilizes maybe we could consider placing her on low-dose anticoagulation to help prevent future DVTs, -After discussing with her the risks and benefits of all procedures, she voiced understanding, all questions answered, agreed to proceed with placing IVC filter -I spoken to hematology Dr. Herrera about plan, certainly again this is a difficult situation, but thinks that this is the most reasonable path -Spoke to cardiology, Dr. Borja agreeable to place IVC filter Vitals/I&O/Wt Last Vital Signs Temp 97.9 F 04/18/22 08:15 Pulse 86 04/18/22 08:15 Resp 17 04/18/22 08:15 BP 116/63 04/18/22 08:15 Pulse Ox 97 04/18/22 08:15 O2 Del Method 04/18/22 08:15 O2 Flow Rate 2 04/18/22 08:15 04/17/22 04/18/22 04/18/22 22:59 06:59 14:59 Intake Total 530 / 1240 240 / 1480 0 / 0 Balance 530 / 1240 240 / 1480 0 / 0 Weight last 48 hrs Weight 77.383 kg Weight 70.488 kg Physical Exam Const: COMMON NORMALS: no acute distress and patient oriented x3 Resp: COMMON NORMALS: normal respiratory effort, No retractions, No use of accessory muscles and clear to auscultation bilaterally AUSCULTATION: clear to auscultation bilaterally Cardio: COMMON NORMALS: regular rate, regular rhythm, S1 normal heart sound present and S2 normal heart sound present RATE: regular rate RHYTHM: regular rhythm HEART SOUNDS: S1 normal heart sound present and S2 normal heart sound present GI: COMMON NORMALS: Normal to inspection, nondistended, normoactive bowel sounds present and non-tender Back/Pelvis: OTHER: On examination, the right gluteus significantly enlarged, has a large hematoma measuring 7 x 7 cm, right lateral gluteus, with some extension down to right hip Extremity: COMMON NORMALS: no pedal edema Neuro: COMMON NORMALS: patient oriented x3 Psych: COMMON NORMALS: mental status grossly normal Urinary Catheter Management: [place]: Cath Placed During This Visit: yes, but has since been removed by the nurse Reason for Continuing Indwelling Catheter: Perioperative Use in Selected Surgeries Urinary Catheter Date of Insertion: 04/15/22 Urinary Catheter Time of Insertion: 21:00 Date Urinary Catheter Removed: 04/17/22 Time Urinary Catheter Discontinued: 05:36 Data 04/18/22 04:20 04/18/22 05:44 Micro: Microbiology 04/17/22 09:35 Blood Culture - Preliminary Blood NEGATIVE TO DATE 04/17/22 09:30 Blood Culture - Preliminary Blood NEGATIVE TO DATE A&P Assessment and plan (1) Acute anemia: - Hemoglobin 7.9, status post 1 unit PRBC receiving her second unit now -We will repeat hemoglobin every 6 hours - likely from lostoperative bleed, with hematoma right buttocks -She does have evidence of iron deficiency anemia, but has not had any bloody or black stool, no hemodynamic compromise -Monitor hemoglobin -Transfuse as needed -Monitor hematoma -Monitor hemodynamics -Hold off on anticoagulant therapy (2) Iron deficiency anemia: - Has evidence of iron deficiency anemia -Iron 8.3, MCV 96.6 -Iron 32 -Ferritin elevated to 92 but likely acute phase reaction from surgery -Hemoccult stool pending -1 dose IV Venofer -Status post 2 units PRBC (3) DVT (deep venous thrombosis): - Venous ultrasound shows Occlusive DVT left Posterior tibial vein at calf -For now continue SCDs -For now cannot anticoagulation due to anemia as above -For now monitor hemoglobin -CT angiogram of the chest shows pulm embolism -Cannot tolerate anticoagulation for the next week or so, due to worsening of acute anemia, postoperative bleed, right buttocks hematoma -Place IVC filter (4) Hypoxia: - Likely secondary to pulmonary embolism (5) Closed right hip fracture: Orthopedic has been consulted from the ER. Status post open reduction internal fixation with intramedullary device, gamma nail, lag screw [place] 5 mg to 8 hourly as needed. Physical therapy, Postoperatively monitor hemoglobin. (6) Leukocytosis: No actual signs of current infection UA relatively unremarkable for UTI, although kept on Rocephin Chest x-ray no focal pneumonia Pro-Aj within normal limits CRP 122.4, could be postsurgical Likely secondary from postoperative bleed, hematoma, pulmonary embolism, DVT Peripheral smear We will monitor (7) Post-operative haemorrhage: - Continue to monitor (8) Hematoma following procedure: -status post recent right femoral neck screw and intramedullary maría placement for comminuted intertrochanteric fracture. Adjacent fluid/hemorrhage and subcutaneous emphysema are expected findings circumferentially around the right hip. There is however large hematoma laterally and extending into the right gluteal musculature measuring 7.0 x 5.4 x 7.9 cm. -Has essentially lost 5 to 6 units of blood into the hematoma -Continue to monitor -Monitor for rapid enlargement -Monitor for risk of infection -Monitor hemoglobin -Hold anticoagulation (9) Bilateral pulmonary embolism: -Pulmonary arteries: Pulmonary embolus extending from the main left pulmonary artery into the anterior segmental pulmonary artery of the left upper lobe. Additional pulmonary embolus in the anterior basilar segment of bilateral lower lobes. -Anticoagulation currently on hold due to anemia, hematoma following procedure, (10) Anemia due to blood loss: (11) Breast cancer, left breast: Plan Left breast cancer on Oral anastrozole. Check vitamin D levels Vitamin B12 deficiency, will replace Analgesia: [place] 5 mg every 8 hourly as needed, morphine 1 mg every 4 hourly as needed Glycemic control: Not needed. Nutrition: Regular diet, n.p.o. after midnight. CODE STATUS: Full code PUD prophylaxis: Protonix DVT prophylaxis: Foot pumps, SCDs. Discharge planning: H SNF depending on physical therapy postoperatively. Admit to [facility] Attestations Medical Necessity Statement*: Patient requires hospitalization, for pulmonary embolism, DVT, postoperative anemia, right gluteal hematoma Diagnoses Acute anemia D64.9 Iron deficiency anemia D50.9 DVT (deep venous thrombosis) I82.409 Hypoxia R09.02 Closed right hip fracture S72.001A Leukocytosis D72.829 Post-operative haemorrhage Hematoma following procedure Bilateral pulmonary embolism I26.99 Anemia due to blood loss D50.0 Breast cancer, left breast C50.912
--- NOTE | 2022-04-18 11:40 | PC.OT ---
OT TREATMENT HELD THIS DATE DUE TO LOW HGB AND SCHEDULED IVC FILTER PLACEMENT TODAY. WILL ATTEMPT AGAIN TOMORROW.
--- NOTE | 2022-04-18 12:19 | PC.NURSE ---
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
[2022-04-18 12:31] LABS: Basophils % 0.2 %; Eosinophils % 0.1 %; Hematocrit 31.3 % (37.0-47.0); Hemoglobin 10.4 g/dL (11.5-15.3); Lymphocytes # 1.4 10^3/uL (0.8-4.8); Lymphocytes % 10.8 %; Mean Corpuscular HGB Conc 33.2 g/dL (30.0-36.0); Mean Corpuscular Hemoglobin 30.4 pg (28.0-34.0); Mean Corpuscular Volume 91.5 fl (81-99); Mean Platelet Volume 10.1 fL (7.4-10.4); Monocytes # 0.8 10^3/uL (0.2-0.9); Monocytes % 6.4 %; Neutrophils # 10.53 10^3/uL (1.8-7.7); Neutrophils % 80.1 %; Nucleated Red Blood Cells % 0.2 %; Platelet Count 180 10^3/cmm (130-400); Red Blood Count 3.42 10^6/uL (4.1-5.3); Red Cell Distribution Width 13.8 % (12.1-15.1); White Blood Count 13.2 10^3/uL (4.0-10.0)
[2022-04-18 14:33] LABS: Lymphoma Profile (BBPL) See Report
[2022-04-18] MEDS: sodium chloride 0.9% 1,000 ML 100 ML IV (15:20)
--- NOTE | 2022-04-18 17:21 | PM.PROC ---
Procedure Note: Date of procedure: 04/18/22 Pre-procedure diagnosis: Pulmonary embolism/DVT/ Acute anemia Post-procedure diagnosis: same Procedure: IVC filter placement: We obtained access in the left common femoral vein. We used pigtail to perform IVC venogram. This was followed by placement of the IVC filter under flouroscopic guidance. Sheath was removed and pressure was held to attain hemostasis. Patient left the assistant laboratory director in a stable condition. Performing Provider: Dwain Borja Estimated blood loss (mL): 5 Complications: None Condition: stable Coding Level of Care Code Acute Code for Chg Fwd
[2022-04-18 18:30] LABS: Basophils # 0.1 10^3/uL (0.0-0.1); Basophils % 0.4 %; Eosinophils # 0.1 10^3/uL (0.0-0.8); Eosinophils % 0.5 %; Hematocrit 32.5 % (37.0-47.0); Hemoglobin 10.8 g/dL (11.5-15.3); Lymphocytes % 12.7 %; Mean Corpuscular HGB Conc 33.2 g/dL (30.0-36.0); Mean Corpuscular Hemoglobin 30.3 pg (28.0-34.0); Mean Platelet Volume 10.3 fL (7.4-10.4); Monocytes # 1.1 10^3/uL (0.2-0.9); Monocytes % 6.9 %; Neutrophils # 12.22 10^3/uL (1.8-7.7); Neutrophils % 77.5 %; Nucleated Red Blood Cells % 0 %; Platelet Count 209 10^3/cmm (130-400); Red Blood Count 3.57 10^6/uL (4.1-5.3); Red Cell Distribution Width 14.1 % (12.1-15.1); White Blood Count 15.8 10^3/uL (4.0-10.0)
[2022-04-18] MEDS: cefTRIAXone 1,000 MG in sodium chloride 0.9% (plus) 50 ML 100 MG IV (21:38)
[2022-04-19] VITALS (8 sets, daily range): BP systolic 107–159; BP diastolic 58–69; PULSE 52–79; RESP 15–20; TEMP 36.6–37.1; O2SAT 91–99
[2022-04-19] MEDS: sodium chloride 0.9% 1,000 ML 100 ML IV (01:25)
[2022-04-19 05:36] LABS: Basophils # 0.1 10^3/uL (0.0-0.1); Basophils % 0.4 %; Eosinophils # 0.1 10^3/uL (0.0-0.8); Eosinophils % 0.8 %; Hematocrit 28.2 % (37.0-47.0); Hemoglobin 9.2 g/dL (11.5-15.3); Lymphocytes # 1.6 10^3/uL (0.8-4.8); Mean Corpuscular HGB Conc 32.6 g/dL (30.0-36.0); Mean Corpuscular Hemoglobin 30.1 pg (28.0-34.0); Mean Corpuscular Volume 92.2 fl (81-99); Mean Platelet Volume 10.1 fL (7.4-10.4); Monocytes # 0.8 10^3/uL (0.2-0.9); Monocytes % 6.5 %; Neutrophils # 9.28 10^3/uL (1.8-7.7); Neutrophils % 77.8 %; Nucleated Red Blood Cells % 0 %; Platelet Count 188 10^3/cmm (130-400); Red Blood Count 3.06 10^6/uL (4.1-5.3); White Blood Count 11.9 10^3/uL (4.0-10.0)
[2022-04-19 05:50] LABS: INR 1.08 (0.8-1.2)
[2022-04-19 06:02] LABS: Alanine Aminotransferase 11 U/L (0-33); Albumin Level 2.8 g/dL (3.5-5.2); Alkaline Phosphatase 45 U/L (35-105); Anion Gap 11.8 (5-19); Aspartate Amino Transferase 14 U/L (0-32); Blood Urea Nitrogen 9 mg/dL (8-23); Calcium 7.8 mg/dL (8.5-10.5); Carbon Dioxide 24 mmol/L (22-29); Chloride 106 mmol/L (98-107); Creatine Phosphokinase 257 U/L (26-192); Globulin 2.1 g/dL (1.3-4.6); Glucose 114 mg/dL (65-115); Magnesium 2.1 mg/dL (1.7-2.3); NT Pro B Type Natriuretic Pept 916 pg/mL (0-450); Osmolality Calculated 286 mOsm/kg (285-295); Phosphorus 2.6 mg/dL (2.5-4.5); Potassium 3.8 mmol/L (3.5-5.1); Sodium 138 mmol/L (136-145); Total Bilirubin 0.4 mg/dL (0.15-1.2); Total Protein 4.9 g/dL (6.6-8.7)
[2022-04-19 06:51] LABS: CKMB 1.7 ng/mL (0-5.34)
--- NOTE | 2022-04-19 07:54 | PM.PN ---
Subjective Subjective: Patient is doing well. No femoral venous access complication. Vitals/I&O/Wt Last Vital Signs Temp 98.7 F 04/19/22 04:00 Pulse 79 04/19/22 05:42 Resp 18 04/19/22 04:00 BP 136/64 04/19/22 04:00 Pulse Ox 99 04/19/22 04:00 O2 Del Method 04/18/22 21:10 O2 Flow Rate 3 04/18/22 20:04 04/18/22 04/19/22 04/19/22 22:59 06:59 14:59 Intake Total 290 / 880 1480 / 2360 Balance 290 / 880 1480 / 2360 Weight last 48 hrs Weight 164 lb 8 oz Weight 170 lb 9.6 oz Physical Exam Narrative: GENERAL: Patient is alert, awake and oriented x3. [] NECK: No jugular vein distension. [] HEENT: No cyanosis. No icterus. No pallor. [] HEART: Regular S1 and S2. No murmur, rub or gallop. [] LUNGS: Clear to auscultate bilaterally. [] ABDOMEN: Soft CENTRAL NERVOUS SYSTEM: Grossly nonfocal. [] EXTREMITIES: Right hip area and thigh are firm Urinary Catheter Management: Corral: Cath Placed During This Visit: yes, but has since been removed by the nurse Reason for Continuing Indwelling Catheter: Perioperative Use in Selected Surgeries Urinary Catheter Date of Insertion: 04/15/22 Urinary Catheter Time of Insertion: 21:00 Date Urinary Catheter Removed: 04/17/22 Time Urinary Catheter Discontinued: 05:36 Data 04/19/22 04:32 04/19/22 04:32 Micro: Microbiology 04/18/22 06:45 Occult Blood (FIT) - Final Stool 04/17/22 09:35 Blood Culture - Preliminary Blood NEGATIVE TO DATE 04/17/22 09:30 Blood Culture - Preliminary Blood NEGATIVE TO DATE A&P Assessment and plan (1) Pulmonary embolus: (2) Anemia due to blood loss: (3) DVT (deep venous thrombosis): (4) Acute anemia: (5) Intertrochanteric fracture of right hip: Plan Patient underwent successful placement of IVC filter yesterday. She is feeling well. If able to restart anticoagulation and she tolerates it, IVC filter can be retrieved in future. Monitor H and H Thank you for involving us with care of this patient. We will continue to follow. Please call with questions. Attestations Medical Necessity Statement*: Care expected to cross 2 midnights. Coding Level of Care Code Acute Code for Chg Fwd Diagnoses Pulmonary embolus I26.99 Anemia due to blood loss D50.0 DVT (deep venous thrombosis) I82.409 Acute anemia D64.9 Intertrochanteric fracture of right hip S72.141A
[2022-04-19] MEDS: FUROsemide 10 mg/mL SDV 4mL 40 MG IVP (08:59)
[2022-04-19] MEDS: potassium chloride ER 20 mEq Tablet PO (09:00)
[2022-04-19] MEDS: nicotine 14 mg Patch 1 PATCH TRANSDERMA (09:00)
[2022-04-19] MEDS: HYDROcodone-acetaminophen 5-325 mg Tablet PO (10:14)
--- NOTE | 2022-04-19 12:38 | P.PN_ITS ---
Subjective Subjective: Patient was seen this morning, no fevers, no chills, no cough, her right hip does bother her, the swelling does not really bother her, she continues to do bed exercises ankle raises, Vitals/I&O/Wt Last Vital Signs Temp 98.0 F 04/19/22 11:28 Pulse 70 04/19/22 11:28 Resp 16 04/19/22 11:28 BP 124/69 04/19/22 11:28 Pulse Ox 97 04/19/22 11:28 O2 Del Method 04/19/22 11:28 O2 Flow Rate 2 04/19/22 08:20 04/18/22 04/19/22 04/19/22 22:59 06:59 14:59 Intake Total 290 / 880 1480 / 2360 1126.667 / 1126.667 Balance 290 / 880 1480 / 2360 1126.667 / 1126.667 Weight last 48 hrs Weight 74.616 kg Weight 77.383 kg Physical Exam Const: COMMON NORMALS: no acute distress and patient oriented x3 Resp: COMMON NORMALS: normal respiratory effort, No retractions, No use of accessory muscles and clear to auscultation bilaterally AUSCULTATION: clear to auscultation bilaterally Cardio: COMMON NORMALS: regular rate, regular rhythm, S1 normal heart sound present and S2 normal heart sound present RATE: regular rate RHYTHM: regular rhythm HEART SOUNDS: S1 normal heart sound present and S2 normal heart sound present GI: COMMON NORMALS: Normal to inspection, nondistended, normoactive bowel sounds present and non-tender Back/Pelvis: OTHER: Right hip, thigh hematoma measuring 7 x 7 cm Extremity: COMMON NORMALS: no pedal edema Neuro: COMMON NORMALS: patient oriented x3 Psych: COMMON NORMALS: mental status grossly normal Urinary Catheter Management: [place]: Cath Placed During This Visit: yes, but has since been removed by the nurse Reason for Continuing Indwelling Catheter: Perioperative Use in Selected Surgeries Urinary Catheter Date of Insertion: 04/15/22 Urinary Catheter Time of Insertion: 21:00 Date Urinary Catheter Removed: 04/17/22 Time Urinary Catheter Discontinued: 05:36 Data 04/19/22 04:32 04/19/22 04:32 Micro: Microbiology 04/18/22 06:45 Occult Blood (FIT) - Final Stool 04/17/22 09:35 Blood Culture - Preliminary Blood NEGATIVE TO DATE 04/17/22 09:30 Blood Culture - Preliminary Blood NEGATIVE TO DATE A&P Assessment and plan (1) Acute anemia: - Hemoglobin 9.2, status post 2 units PRBC, no heme may compromise - likely from postoperative bleed, with hematoma right buttocks -She does have evidence of iron deficiency anemia, but has not had any bloody or black stool, no hemodynamic compromise -Monitor hemoglobin -Transfuse as needed -Monitor hematoma -Monitor hemodynamics -Hold off on anticoagulant therapy (2) Iron deficiency anemia: - Has evidence of iron deficiency anemia -Iron 8.3, MCV 96.6 -Iron 32 -Ferritin elevated to 92 but likely acute phase reaction from surgery -Hemoccult stool pending -1 dose IV Venofer -Status post 2 units PRBC (3) DVT (deep venous thrombosis): - Venous ultrasound shows Occlusive DVT left Posterior tibial vein at calf -For now continue SCDs -For now cannot anticoagulation due to anemia as above -For now monitor hemoglobin -CT angiogram of the chest shows pulm embolism -Cannot tolerate anticoagulation for the next week or so, due to worsening of acute anemia, postoperative bleed, right buttocks hematoma Status post IVC filter placement (4) Hypoxia: - Likely secondary to pulmonary embolism (5) Closed right hip fracture: Orthopedic has been consulted from the ER. Status post open reduction internal fixation with intramedullary device, gamma nail, lag screw [place] 5 mg to 8 hourly as needed. Physical therapy, Postoperatively monitor hemoglobin. (6) Leukocytosis: No actual signs of current infection UA relatively unremarkable for UTI, although kept on Rocephin Chest x-ray no focal pneumonia Pro-Aj within normal limits CRP 122.4, could be postsurgical Likely secondary from postoperative bleed, hematoma, pulmonary embolism, DVT Peripheral smear We will monitor (7) Post-operative haemorrhage: - Continue to monitor (8) Hematoma following procedure: -status post recent right femoral neck screw and intramedullary maría placement for comminuted intertrochanteric fracture. Adjacent fluid/hemorrhage and subcutaneous emphysema are expected findings circumferentially around the right hip. There is however large hematoma laterally and extending into the right gluteal musculature measuring 7.0 x 5.4 x 7.9 cm. -Has essentially lost 5 units of blood into the hematoma -Continue to monitor -Monitor for rapid enlargement -Monitor for risk of infection -Monitor hemoglobin -Hold anticoagulation (9) Bilateral pulmonary embolism: -Pulmonary arteries: Pulmonary embolus extending from the main left pulmonary artery into the anterior segmental pulmonary artery of the left upper lobe. Additional pulmonary embolus in the anterior basilar segment of bilateral lower lobes. -Anticoagulation currently on hold due to anemia, hematoma following procedure, status post IVC filter placement (10) Anemia due to blood loss: (11) Breast cancer, left breast: Plan Left breast cancer on Oral anastrozole. Hold for now as per discussion with oncology due to associate with hypercoagulable events Vitamin B12 deficiency, will replace Today looks a bit fluid overloaded 1 dose of Lasix Analgesia: [place] 5 mg every 8 hourly as needed, morphine 1 mg every 4 hourly as needed Glycemic control: Not needed. Nutrition: Regular diet, n.p.o. after midnight. CODE STATUS: Full code PUD prophylaxis: Protonix DVT prophylaxis: Foot pumps, SCDs. Discharge planning: H SNF depending on physical therapy postoperatively. [facility] Attestations Medical Necessity Statement*: Patient requires hospitalization for pulmonary embolism, DVT, postoperative bleed, Coding Level of Care Code 52091 Moderate MDM includes number and complexity of problems actively addressed during encounter, amount and/or complexity of data reviewed/ordered and described risk of complication, morbidity or mortality of management as documen martín Diagnoses Acute anemia D64.9 Iron deficiency anemia D50.9 DVT (deep venous thrombosis) I82.409 Hypoxia R09.02 Closed right hip fracture S72.001A Leukocytosis D72.829 Post-operative haemorrhage Hematoma following procedure Bilateral pulmonary embolism I26.99 Anemia due to blood loss D50.0 Breast cancer, left breast C50.912
[2022-04-19] MEDS: ondansetron 2 mg/ML SDV 2 mL 4 MG IVP (15:04)
[2022-04-19] MEDS: pantoprazole 40 mg SDV IVP (21:54)
[2022-04-19] MEDS: cefTRIAXone 1,000 MG in sodium chloride 0.9% (plus) 50 ML 100 MG IV (21:54)
[2022-04-20] VITALS (11 sets, daily range): BP systolic 126–168; BP diastolic 52–74; PULSE 63–88; RESP 12–18; TEMP 36.7–37.2; O2SAT 91–98; BMI 29.7
[2022-04-20 05:00] LABS: Basophils % 0.3 %; Eosinophils # 0.2 10^3/uL (0.0-0.8); Eosinophils % 2.2 %; Hematocrit 27.6 % (37.0-47.0); Hemoglobin 9.1 g/dL (11.5-15.3); Lymphocytes # 1.8 10^3/uL (0.8-4.8); Lymphocytes % 17.9 %; Mean Corpuscular Volume 93.9 fl (81-99); Mean Platelet Volume 10.2 fL (7.4-10.4); Monocytes # 0.7 10^3/uL (0.2-0.9); Monocytes % 7.2 %; Neutrophils # 7.31 10^3/uL (1.8-7.7); Nucleated Red Blood Cells % 0 %; Platelet Count 180 10^3/cmm (130-400); Red Blood Count 2.94 10^6/uL (4.1-5.3); Red Cell Distribution Width 13.2 % (12.1-15.1); White Blood Count 10.3 10^3/uL (4.0-10.0)
[2022-04-20 05:31] LABS: Alanine Aminotransferase 11 U/L (0-33); Albumin Level 2.7 g/dL (3.5-5.2); Alkaline Phosphatase 43 U/L (35-105); Aspartate Amino Transferase 18 U/L (0-32); Blood Urea Nitrogen 10 mg/dL (8-23); Calcium 7.9 mg/dL (8.5-10.5); Carbon Dioxide 27 mmol/L (22-29); Chloride 101 mmol/L (98-107); Globulin 2.2 g/dL (1.3-4.6); Glucose 99 mg/dL (65-115); NT Pro B Type Natriuretic Pept 583 pg/mL (0-450); Osmolality Calculated 281 mOsm/kg (285-295); Phosphorus 2.8 mg/dL (2.5-4.5); Sodium 136 mmol/L (136-145); Total Bilirubin 0.6 mg/dL (0.15-1.2); Total Protein 4.9 g/dL (6.6-8.7)
[2022-04-20] MEDS: cyanocobalamin 1,000 mcg Tablet 500 MCG PO (09:41)
[2022-04-20] MEDS: nicotine 14 mg Patch 1 PATCH TRANSDERMA (09:42)
[2022-04-20] MEDS: FUROsemide 10 mg/mL SDV 4mL 40 MG IVP (09:42)
--- NOTE | 2022-04-20 10:18 | PM.PN ---
Subjective Subjective: Patient is stable. Hemoglobin is stable. Vitals/I&O/Wt Last Vital Signs Temp 98.0 F 04/20/22 08:00 Pulse 63 04/20/22 08:45 Resp 12 04/20/22 08:00 BP 126/52 04/20/22 08:00 Pulse Ox 92 04/20/22 08:45 O2 Del Method 04/20/22 08:45 O2 Flow Rate 3 04/20/22 08:00 04/19/22 04/20/22 04/20/22 22:59 06:59 14:59 Intake Total 2015.667 Balance 2015.667 Weight last 48 hrs Weight 162 lb 4 oz Weight 164 lb 8 oz Physical Exam Narrative: GENERAL: Patient is alert, awake and oriented x3. [] NECK: No jugular vein distension. [] HEENT: No cyanosis. No icterus. No pallor. [] HEART: Regular S1 and S2. No murmur, rub or gallop. [] LUNGS: Clear to auscultate bilaterally. [] ABDOMEN: Soft CENTRAL NERVOUS SYSTEM: Grossly nonfocal. [] EXTREMITIES: Right hip area and thigh are firm and now have brusing Urinary Catheter Management: [place]: Cath Placed During This Visit: yes, but has since been removed by the nurse Reason for Continuing Indwelling Catheter: Perioperative Use in Selected Surgeries Urinary Catheter Date of Insertion: 04/15/22 Urinary Catheter Time of Insertion: 21:00 Date Urinary Catheter Removed: 04/17/22 Time Urinary Catheter Discontinued: 05:36 Data 04/20/22 04:32 04/20/22 04:32 A&P Assessment and plan (1) Pulmonary embolus: (2) Anemia due to blood loss: (3) DVT (deep venous thrombosis): (4) Acute anemia: (5) Intertrochanteric fracture of right hip: Plan Patient is stable. H and H is also stable. Awaiting placement Thank you for involving us with care of this patient. We will continue to follow. Please call with questions. Attestations Medical Necessity Statement*: Care expected to cross 2 midnights. Coding Level of Care Code Acute Code for Chg Fwd Diagnoses Pulmonary embolus I26.99 Anemia due to blood loss D50.0 DVT (deep venous thrombosis) I82.409 Acute anemia D64.9 Intertrochanteric fracture of right hip S72.141A
[2022-04-20] MEDS: HYDROcodone-acetaminophen 5-325 mg Tablet PO (11:07)
--- NOTE | 2022-04-20 11:28 | PC.SOCIAL ---
IMM Updated Updated pt on IMM. No questions voiced. Provided pt a copy. Initialed, dated, & timed copy in chart.
--- NOTE | 2022-04-20 15:58 | P.PN_ITS ---
Subjective Subjective: Patient was seen this morning, her friends are at bedside, she has no complaints she is moving around okay she tells me, no fevers, no chills, no headache, no blurry vision, no lightheadedness Vitals/I&O/Wt Last Vital Signs Temp 98.3 F 04/20/22 12:00 Pulse 75 04/20/22 12:00 Resp 14 04/20/22 12:00 BP 138/54 04/20/22 12:00 Pulse Ox 92 04/20/22 12:00 O2 Del Method 04/20/22 12:00 O2 Flow Rate 3 04/20/22 08:00 Weight last 48 hrs Weight 73.595 kg Weight 74.616 kg Physical Exam Const: COMMON NORMALS: no acute distress and patient oriented x3 Resp: COMMON NORMALS: normal respiratory effort, No retractions, No use of accessory muscles and clear to auscultation bilaterally AUSCULTATION: clear to auscultation bilaterally Cardio: COMMON NORMALS: regular rate, regular rhythm, S1 normal heart sound present and S2 normal heart sound present RATE: regular rate RHYTHM: regular rhythm HEART SOUNDS: S1 normal heart sound present and S2 normal heart sound present GI: COMMON NORMALS: Normal to inspection, nondistended, normoactive bowel sounds present and non-tender Extremity: COMMON NORMALS: no pedal edema NARRATIVE EXTREMITY EXAM: Right hip hematoma, buttocks hematoma more bruised appearing Neuro: COMMON NORMALS: patient oriented x3 Psych: COMMON NORMALS: mental status grossly normal Urinary Catheter Management: [place]: Cath Placed During This Visit: yes, but has since been removed by the nurse Reason for Continuing Indwelling Catheter: Perioperative Use in Selected Surgeries Urinary Catheter Date of Insertion: 04/15/22 Urinary Catheter Time of Insertion: 21:00 Date Urinary Catheter Removed: 04/17/22 Time Urinary Catheter Discontinued: 05:36 Data 04/20/22 04:32 04/20/22 04:32 A&P Assessment and plan (1) Acute anemia: - Hemoglobin 9.1, status post 2 units PRBC, no hemodynamic compromise - likely from postoperative bleed, with hematoma right buttocks -She does have evidence of iron deficiency anemia, but has not had any bloody or black stool, no hemodynamic compromise -Monitor hemoglobin -Transfuse as needed -Monitor hematoma -Monitor hemodynamics -Hold off on anticoagulant therapy (2) Iron deficiency anemia: - Has evidence of iron deficiency anemia -Iron 8.3, MCV 96.6 -Iron 32 -Ferritin elevated to 92 but likely acute phase reaction from surgery -Hemoccult stool pending -1 dose IV Venofer -Status post 2 units PRBC (3) DVT (deep venous thrombosis): - Venous ultrasound shows Occlusive DVT left Posterior tibial vein at calf -For now continue SCDs -For now cannot anticoagulation due to anemia as above -For now monitor hemoglobin -CT angiogram of the chest shows pulm embolism -Cannot tolerate anticoagulation for the next week or so, due to worsening of acute anemia, postoperative bleed, right buttocks hematoma Status post IVC filter placement (4) Hypoxia: - Likely secondary to pulmonary embolism (5) Closed right hip fracture: Orthopedic has been consulted from the ER. Status post open reduction internal fixation with intramedullary device, gamma nail, lag screw [place] 5 mg to 8 hourly as needed. Physical therapy, Postoperatively monitor hemoglobin. (6) Leukocytosis: No actual signs of current infection UA relatively unremarkable for UTI, although kept on Rocephin Chest x-ray no focal pneumonia Pro-Aj within normal limits CRP 122.4, could be postsurgical Likely secondary from postoperative bleed, hematoma, pulmonary embolism, DVT Peripheral smear We will monitor (7) Post-operative haemorrhage: - Continue to monitor (8) Hematoma following procedure: -status post recent right femoral neck screw and intramedullary maría placement for comminuted intertrochanteric fracture. Adjacent fluid/hemorrhage and subcutaneous emphysema are expected findings circumferentially around the right hip. There is however large hematoma laterally and extending into the right gluteal musculature measuring 7.0 x 5.4 x 7.9 cm. -Has essentially lost 5 units of blood into the hematoma -Continue to monitor -Monitor for rapid enlargement -Monitor for risk of infection -Monitor hemoglobin -Hold anticoagulation (9) Bilateral pulmonary embolism: -Pulmonary arteries: Pulmonary embolus extending from the main left pulmonary artery into the anterior segmental pulmonary artery of the left upper lobe. Additional pulmonary embolus in the anterior basilar segment of bilateral lower lobes. -Anticoagulation currently on hold due to anemia, hematoma following procedure, status post IVC filter placement (10) Anemia due to blood loss: (11) Breast cancer, left breast: Plan Left breast cancer on Oral anastrozole. Hold for now as per discussion with oncology due to associate with hypercoagulable events Vitamin B12 deficiency, will replace Today looks a bit fluid overloaded 1 dose of Lasix Analgesia: [place] 5 mg every 8 hourly as needed Glycemic control: Not needed. Nutrition: Regular diet, n.p.o. after midnight. CODE STATUS: Full code PUD prophylaxis: Protonix DVT prophylaxis: Foot pumps, SCDs. Continue calf raises, mobility Discharge planning: H SNF depending on physical therapy postoperatively. Admit to [facility] Attestations Medical Necessity Statement*: Patient requires presentation due to pulmonary embolism, anemia, right hip and buttocks hematoma, Diagnoses Acute anemia D64.9 Iron deficiency anemia D50.9 DVT (deep venous thrombosis) I82.409 Hypoxia R09.02 Closed right hip fracture S72.001A Leukocytosis D72.829 Post-operative haemorrhage Hematoma following procedure Bilateral pulmonary embolism I26.99 Anemia due to blood loss D50.0 Breast cancer, left breast C50.912
[2022-04-20] MEDS: cefTRIAXone 1,000 MG in sodium chloride 0.9% (plus) 50 ML 100 MG IV (21:52)
[2022-04-20] MEDS: pantoprazole 40 mg SDV IVP (21:53)
[2022-04-21] VITALS (9 sets, daily range): BP systolic 115–146; BP diastolic 57–66; PULSE 70–87; RESP 15–17; TEMP 36.4–37.1; O2SAT 92–97
[2022-04-21 04:49] LABS: Basophils % 0.3 %; Eosinophils # 0.2 10^3/uL (0.0-0.8); Eosinophils % 1.9 %; Hematocrit 28.7 % (37.0-47.0); Hemoglobin 9.4 g/dL (11.5-15.3); Lymphocytes # 1.8 10^3/uL (0.8-4.8); Lymphocytes % 15.5 %; Mean Corpuscular HGB Conc 32.8 g/dL (30.0-36.0); Mean Corpuscular Hemoglobin 31.1 pg (28.0-34.0); Mean Platelet Volume 10.2 fL (7.4-10.4); Monocytes # 0.8 10^3/uL (0.2-0.9); Monocytes % 7.3 %; Neutrophils # 8.51 10^3/uL (1.8-7.7); Nucleated Red Blood Cells % 0 %; Platelet Count 229 10^3/cmm (130-400); Red Blood Count 3.02 10^6/uL (4.1-5.3); Red Cell Distribution Width 13.1 % (12.1-15.1); White Blood Count 11.5 10^3/uL (4.0-10.0)
[2022-04-21 05:08] LABS: Anion Gap 12.8 (5-19); Blood Urea Nitrogen 12 mg/dL (8-23); Calcium 8.3 mg/dL (8.5-10.5); Carbon Dioxide 28 mmol/L (22-29); Chloride 100 mmol/L (98-107); Glucose 104 mg/dL (65-115); Osmolality Calculated 284 mOsm/kg (285-295); Potassium 3.8 mmol/L (3.5-5.1); Sodium 137 mmol/L (136-145)
[2022-04-21] MEDS: HYDROcodone-acetaminophen 5-325 mg Tablet PO ×2 (08:19→23:23)
[2022-04-21] MEDS: nicotine 14 mg Patch 1 PATCH TRANSDERMA (09:32)
--- NOTE | 2022-04-21 10:39 | PM.PN ---
Subjective Subjective: Patient is stable. On room air now. Has right thigh bruising. Vitals/I&O/Wt Last Vital Signs Temp 97.6 F 04/21/22 07:54 Pulse 70 04/21/22 08:00 Resp 16 04/21/22 07:54 BP 130/61 04/21/22 07:54 Pulse Ox 94 04/21/22 08:00 O2 Del Method 04/21/22 08:00 O2 Flow Rate 3 04/20/22 08:00 04/20/22 04/21/22 04/21/22 22:59 06:59 14:59 Intake Total 410 / 410 Balance 410 / 410 Weight last 48 hrs Weight 158 lb 3.2 oz Weight 162 lb 4 oz Physical Exam Narrative: GENERAL: Patient is alert, awake and oriented x3. [] NECK: No jugular vein distension. [] HEENT: No cyanosis. No icterus. No pallor. [] HEART: Regular S1 and S2. No murmur, rub or gallop. [] LUNGS: Clear to auscultate bilaterally. [] ABDOMEN: Soft CENTRAL NERVOUS SYSTEM: Grossly nonfocal. [] EXTREMITIES: Right hip area and thigh are firm and now have brusing Urinary Catheter Management: [place]: Cath Placed During This Visit: yes, but has since been removed by the nurse Reason for Continuing Indwelling Catheter: Perioperative Use in Selected Surgeries Urinary Catheter Date of Insertion: 04/15/22 Urinary Catheter Time of Insertion: 21:00 Date Urinary Catheter Removed: 04/17/22 Time Urinary Catheter Discontinued: 05:36 Data 04/21/22 04:02 04/21/22 04:02 A&P Assessment and plan (1) Pulmonary embolus: (2) Anemia due to blood loss: (3) DVT (deep venous thrombosis): (4) Acute anemia: (5) Intertrochanteric fracture of right hip: Plan Patient's respiratory status is stable. No further drop in hemoglobin. Patient can be started on anticoagulation as outpatient and if no drop in hemoglobin in future, we will plan on retrieving IVC filter Thank you for involving us with care of this patient. We will continue to follow. Please call with questions. Attestations Medical Necessity Statement*: Care expected to cross 2 midnights. Coding Level of Care Code Acute Code for [facility] Fwd Diagnoses Pulmonary embolus I26.99 Anemia due to blood loss D50.0 DVT (deep venous thrombosis) I82.409 Acute anemia D64.9 Intertrochanteric fracture of right hip S72.141A
[2022-04-21] MEDS: cyanocobalamin 1,000 mcg Tablet 500 MCG PO (12:43)
--- NOTE | 2022-04-21 15:08 | P.PN_ITS ---
Subjective Subjective: Her rightPatient was seen this morning, she complains of bruising now extending thigh, into her right leg, it is really bother her she tells me that it just looks more dark and purplish in discoloration, no fevers, no warmth Vitals/I&O/Wt Last Vital Signs Temp 98.1 F 04/21/22 11:35 Pulse 81 04/21/22 11:35 Resp 15 04/21/22 11:35 BP 115/57 04/21/22 11:35 Pulse Ox 97 04/21/22 11:35 O2 Del Method 04/21/22 11:35 O2 Flow Rate 3 04/20/22 08:00 04/21/22 04/21/22 04/21/22 06:59 14:59 22:59 Intake Total 240 / 240 Balance 240 / 240 Weight last 48 hrs Weight 71.758 kg Weight 73.595 kg Physical Exam Const: COMMON NORMALS: no acute distress and patient oriented x3 Resp: COMMON NORMALS: normal respiratory effort, No retractions, No use of accessory muscles and clear to auscultation bilaterally AUSCULTATION: clear to auscultation bilaterally Cardio: COMMON NORMALS: regular rate, regular rhythm, S1 normal heart sound present and S2 normal heart sound present RATE: regular rate RHYTHM: regular rhythm HEART SOUNDS: S1 normal heart sound present and S2 normal heart sound present GI: COMMON NORMALS: Normal to inspection, nondistended, normoactive bowel so unds present and non-tender Extremity: COMMON NORMALS: no pedal edema Neuro: COMMON NORMALS: patient oriented x3 Psych: COMMON NORMALS: mental status grossly normal Skin: NARRATIVE SKIN EXAM: Hematoma, right side, right thigh, right buttocks, down to right leg Urinary Catheter Management: [place]: Cath Placed During This Visit: yes, but has since been removed by the nurse Reason for Continuing Indwelling Catheter: Perioperative Use in Selected Surgeries Urinary Catheter Date of Insertion: 04/15/22 Urinary Catheter Time of Insertion: 21:00 Date Urinary Catheter Removed: 04/17/22 Time Urinary Catheter Discontinued: 05:36 Data 04/21/22 04:02 04/21/22 04:02 A&P Assessment and plan (1) Acute anemia: - Hemoglobin 9.4, status post 2 units PRBC, no hemodynamic compromise - likely from postoperative bleed, with hematoma right buttocks, extending down to right thigh, down the right leg -She does have evidence of iron deficiency anemia, but has not had any bloody or black stool, no hemodynamic compromise -Monitor hemoglobin -Transfuse as needed -Monitor hematoma -Monitor hemodynamics -Hold off on anticoagulant therapy (2) Iron deficiency anemia: - Has evidence of iron deficiency anemia -Iron 8.3, MCV 96.6 -Iron 32 -Ferritin elevated to 92 but likely acute phase reaction from surgery -Hemoccult stool pending -1 dose IV Venofer -Status post 2 units PRBC (3) DVT (deep venous thrombosis): - Venous ultrasound shows Occlusive DVT left Posterior tibial vein at calf -For now continue SCDs -For now cannot anticoagulation due to anemia as above -For now monitor hemoglobin -CT angiogram of the chest shows pulm embolism -Cannot tolerate anticoagulation for the next week or so, due to worsening of acute anemia, postoperative bleed, right buttocks hematoma Status post IVC filter placement (4) Hypoxia: - Likely secondary to pulmonary embolism (5) Closed right hip fracture: Orthopedic has been consulted from the ER. Status post open reduction internal fixation with intramedullary device, gamma nail, lag screw [place] 5 mg to 8 hourly as needed. Physical therapy, Postoperatively monitor hemoglobin. (6) Leukocytosis: No actual signs of current infection UA relatively unremarkable for UTI, although kept on Rocephin Chest x-ray no focal pneumonia Pro-Aj within normal limits CRP 122.4, could be postsurgical Likely secondary from postoperative bleed, hematoma, pulmonary embolism, DVT Peripheral smear We will monitor (7) Post-operative haemorrhage: - Continue to monitor (8) Hematoma following procedure: -status post recent right femoral neck screw and intramedullary maría placement for comminuted intertrochanteric fracture. Adjacent fluid/hemorrhage and subcutaneous emphysema are expected findings circumferentially around the right hip. There is however large hematoma laterally and extending into the right gluteal musculature measuring 7.0 x 5.4 x 7.9 cm. -Has essentially lost 5 units of blood into the hematoma -Continue to monitor -Monitor for rapid enlargement -Monitor for risk of infection -Monitor hemoglobin -Hold anticoagulation (9) Bilateral pulmonary embolism: -Pulmonary arteries: Pulmonary embolus extending from the main left pulmonary artery into the anterior segmental pulmonary artery of the left upper lobe. Additional pulmonary embolus in the anterior basilar segment of bilateral lower lobes. -Anticoagulation currently on hold due to anemia, hematoma following procedure, status post IVC filter placement (10) Anemia due to blood loss: (11) Breast cancer, left breast: Plan Left breast cancer on Oral anastrozole. Hold for now as per discussion with oncology due to associate with hypercoagulable events Vitamin B12 deficiency, will replace Today looks a bit fluid overloaded 1 dose of Lasix Analgesia: [place] 5 mg every 8 hourly as needed Glycemic control: Not needed. Nutrition: Regular diet, CODE STATUS: Full code PUD prophylaxis: Protonix DVT prophylaxis: Foot pumps, SCDs. Continue calf raises, mobility Discharge planning: H SNF depending on physical therapy postoperatively. [facility]cess[facility] Statement*: Patient requires hospitalization for postoperative anemia, hematoma, anemia Diagnoses Acute anemia D64.9 Iron deficiency anemia D50.9 DVT (deep venous thrombosis) I82.409 Hypoxia R09.02 Closed right hip fracture S72.001A Leukocytosis D72.829 Post-operative haemorrhage Hematoma following procedure Bilateral pulmonary embolism I26.99 Anemia due to blood loss D50.0 Breast cancer, left breast C50.912
[2022-04-21] MEDS: cefdinir 300 MG CAPSULE PO (18:28)
[2022-04-22] VITALS: BP 136/63; PULSE 79; RESP 17; TEMP 36.6; O2SAT 94
[2022-04-22 02:02] LABS: SARS Covid-2 Antigen negative (Negative)
[2022-04-22 03:17] LABS: Basophils % 0.4 %; Eosinophils # 0.4 10^3/uL (0.0-0.8); Eosinophils % 3.2 %; Hematocrit 29.4 % (37.0-47.0); Hemoglobin 9.5 g/dL (11.5-15.3); Lymphocytes # 1.9 10^3/uL (0.8-4.8); Lymphocytes % 17.2 %; Mean Corpuscular HGB Conc 32.3 g/dL (30.0-36.0); Mean Corpuscular Hemoglobin 30.1 pg (28.0-34.0); Mean Platelet Volume 9.8 fL (7.4-10.4); Monocytes # 0.9 10^3/uL (0.2-0.9); Monocytes % 7.9 %; Neutrophils # 7.83 10^3/uL (1.8-7.7); Neutrophils % 70.3 %; Nucleated Red Blood Cells % 0 %; Platelet Count 245 10^3/cmm (130-400); Red Blood Count 3.16 10^6/uL (4.1-5.3); Red Cell Distribution Width 13.2 % (12.1-15.1); White Blood Count 11.1 10^3/uL (4.0-10.0)
[2022-04-22 03:41] LABS: Blood Urea Nitrogen 11 mg/dL (8-23); Calcium 8.5 mg/dL (8.5-10.5); Carbon Dioxide 26 mmol/L (22-29); Chloride 101 mmol/L (98-107); Glucose 103 mg/dL (65-115); Osmolality Calculated 284 mOsm/kg (285-295); Sodium 137 mmol/L (136-145)
[2022-04-22 04:00] VITALS: BP 161/73; PULSE 76; RESP 17; TEMP 37.1; O2SAT 95
[2022-04-22 06:00] VITALS: PULSE 75
[2022-04-22] MEDS: cyanocobalamin 1,000 mcg Tablet 500 MCG PO (07:48)
[2022-04-22] MEDS: pantoprazole DR 40 mg Tablet PO (07:49)
[2022-04-22] MEDS: nicotine 14 mg Patch 1 PATCH TRANSDERMA (07:49)
[2022-04-22 08:00] VITALS: BP 158/88; PULSE 77; RESP 18; TEMP 36.4; O2SAT 94
--- NOTE | 2022-04-22 08:29 | P.PN_ITS ---
Subjective Subjective: Patient is stable. hemoglobin is stable. Vitals/I&O/Wt Last Vital Signs Temp 98.7 F 04/22/22 04:00 Pulse 75 04/22/22 06:00 Resp 17 04/22/22 04:00 BP 161/73 04/22/22 04:00 Pulse Ox 95 04/22/22 04:00 O2 Del Method 04/21/22 15:45 O2 Flow Rate 3 04/20/22 08:00 04/21/22 04/22/22 04/22/22 22:59 06:59 14:59 Intake Total 480 / 720 Output Total 200 / 200 Balance 480 / 720 -200 / -200 Weight last 48 hrs Weight 157 lb 4.8 oz Weight 158 lb 3.2 oz Physical Exam Narrative: GENERAL: Patient is alert, awake and oriented x3. [] NECK: No jugular vein distension. [] HEENT: No cyanosis. No icterus. No pallor. [] HEART: Regular S1 and S2. No murmur, rub or gallop. [] LUNGS: Clear to auscultate bilaterally. [] ABDOMEN: Soft CENTRAL NERVOUS SYSTEM: Grossly nonfocal. [] EXTREMITIES: Right hip area and thigh are firm Urinary Catheter Management: [place]: Cath Placed During This Visit: yes, but has since been removed by the nurse Reason for Continuing Indwelling Catheter: Perioperative Use in Selected Surgeries Urinary Catheter Date of Insertion: 04/15/22 Urinary Catheter Time of Insertion: 21:00 Date Urinary Catheter Removed: 04/17/22 Time Urinary Catheter Discontinued: 05:36 Data 04/22/22 02:58 04/22/22 02:58 A&P Assessment and plan (1) Pulmonary embolus: (2) Anemia due to blood loss: (3) DVT (deep venous thrombosis): (4) Acute anemia: (5) Intertrochanteric fracture of right hip: Plan Patient is stable. No acute decrease in hemoglobin. Outpatient cardiology foll ow-up. Attestations Medical Necessity Statement*: Care expected to cross 2 midnights. Coding Level of Care Code Acute Code for Chg Fwd Diagnoses Pulmonary embolus I26.99 Anemia due to blood loss D50.0 DVT (deep venous thrombosis) I82.409 Acute anemia D64.9 Intertrochanteric fracture of right hip S72.141A
--- NOTE | 2022-04-22 10:35 | PC.NURSE ---
report called to Rebeca at [facility], all questions answered.
[2022-04-22 11:18] VITALS: BP 150/67; PULSE 74; RESP 18; TEMP 37.1; O2SAT 96
[2022-04-22] MEDS: cefdinir 300 MG CAPSULE PO (12:04)
[2022-04-22] MEDS: HYDROcodone-acetaminophen 5-325 mg Tablet PO (12:07)
--- NOTE | 2022-04-22 12:28 | PC.SOCIAL ---
IMM Update pg 2 of IMM updated and reviewed w/ patient. Copy provided and Copy in chart dated and initialed.
[2022-04-22 13:06] VITALS: BP 150/67; PULSE 74; RESP 18; TEMP 37.1; O2SAT 96
--- NOTE | 2022-04-22 13:15 | P.DS_ITS ---
Discharge Providers Date of Admission: 04/15/22 20:17 Date of Discharge: April 22, 2022 Attending Provider at Admission: Harjit Elizabeth MD Attending Provider at Discharge: Sylvester Kerr Diagnoses at Discharge Discharge Diagnosis (1) Acute anemia: Status: Acute (2) Iron deficiency anemia: Status: Acute (3) DVT (deep venous thrombosis): Status: Acute (4) Hypoxia: Status: Acute (5) Closed right hip fracture: Status: Acute (6) Leukocytosis: Status: Acute (7) Post-operative haemorrhage: Status: Acute (8) Hematoma following procedure: Status: Acute (9) Bilateral pulmonary embolism: Status: Acute (10) Anemia due to blood loss: Status: Acute (11) Breast cancer, left breast: Status: Acute Reason for Visit Reason for Visit: FALL/ FEMUR/HIP FX Hospital Course Hospital Course Pleasant 76-year lady was admitted after a fall and a right hip fracture for which she underwent repair with ORIF. Postoperative course included anemia, as well as finding of DVT, PE, as well as large hematoma of right hip extending into right gluteus. Incidental CT findings included also centrilobular emphysema, 2.6 cm infrarenal dilation of abdominal aorta, cholelithiasis. Anticoagulation was stopped. She underwent placement of IVC filter. Anticoagulation is held off for now. Received 2 units RBC transfusion. Hemoglobin has responded and has remained around 9.5. Please reassess blood counts, reassess her condition with PE, DVTs, recovery after hip fracture and repair, consider addition of anticoagulation when safe. She is asked for now to not resume anastrozole to avoid adding hypercoagulability, she is asked to follow-up with heme-onc. Please follow-up regarding ectatic abdominal aorta and cholelithiasis. Otherwise he is feeling better. Hypoxia resolved, she weaned off oxygen. Doing well on room air. She will continue rehabilitation at SNF. Physical Exam Narrative: Accompanied by her daughter Const: COMMON NORMALS: patient oriented x3 and alert GENERAL APPEARANCE: cooperative ORIENTATION/CONSCIOUSNESS: Yes awake OTHER: Sitting up in bed, pleasant, conversant. HENMT: COMMON NORMALS: oropharynx normal Neck/C-Spine: COMMON NORMALS: no JVD Resp: COMMON NORMALS: normal respiratory effort and clear to auscultation bilaterally AUSCULTATION: clear to auscultation bilaterally Cardio: COMMON NORMALS: no JVD, regular rhythm, S1 normal heart sound present, S2 normal heart sound present and No murmurs present (Cardio) RHYTHM: regular rhythm HEART SOUNDS: S1 normal heart sound present and S2 normal heart sound present GI: COMMON NORMALS: Normal to inspection, nondistended, normoactive bowel sounds present, Soft to palpation and non-tender PALPATION: Yes Soft to palpation Extremity: COMMON NORMALS: no joint enlargement and no pedal edema NARRATIVE EXTREMITY EXAM: Large bruise right lateral thigh extending down the leg. No fracture bruise, no active bleeding. Dressing intact. OTHER: Lower extremity edema significant decrease rash resolved. Neuro: COMMON NORMALS: patient oriented x3 and moves all extremities SENSORIUM/ORIENTATION: Yes alert Skin: COMMON NORMALS: no rashes or lesions noted GENERAL SKIN EXAM: no rashes or lesions noted Urinary Catheter Management: [place]: Cath Placed During This Visit: yes, but has since been removed by the nurse Reason for Continuing Indwelling Catheter: Perioperative Use in Selected Surgeries Urinary Catheter Date of Insertion: 04/15/22 Urinary Catheter Time of Insertion: 21:00 Date Urinary Catheter Removed: 04/17/22 Time Urinary Catheter Discontinued: 05:36 Discharge Data Studies Completed and Pending Completed Studies During Hospitalization Category Date Time Status CT angio chest w abd pel w con Stat Cat Scan 04/17/22 16:42 Completed CON[employer]ICT [employer] PROFESSIONAL request for service Routine Exams 04/18/22 09:02 Completed CXRP [XR chest 1V portable [id number]] Stat Exams 04/15/22 18:49 Completed XR chest 1V portable [id number] Routine Exams 04/17/22 08:00 Completed XR hip RT 2-3V wo/w pel* [id number] Routine Exams 04/16/22 17:05 Completed XR hip RT 2-3V wo/w pel* [id number] Stat Exams 04/15/22 18:49 [place] [id number] Routine Ultrasound 04/17/22 11:24 Completed Radiology Impressions Chest X-Ray 04/17/22 08:00 IMPRESSION: 1. No acute cardiopulmonary process. Chest/Abdomen/Pelvis CT 04/17/22 16:42 IMPRESSION: 1. Pulmonary embolus extending from the main left pulmonary artery into the anterior segmental pulmonary artery of the left upper lobe. Additional pulmonary embolus in the anterior basilar segment of bilateral lower lobes. 2. No evidence of right ventricular strain. 3. Mild centrilobular and paraseptal emphysematous changes are present. IMPRESSION: 1. Dilated infrarenal abdominal aorta measured at 2.6 cm. Follow-up imaging in 5 years is recommended. 2. Well-formed stool distends the rectum but without evidence of rectal wall inflammation. 3. Status post recent right femoral neck screw and intramedullary maría placement for comminuted intertrochanteric fracture. Adjacent fluid/hemorrhage and subcutaneous emphysema are expected findings circumferentially around the right hip. There is however large hematoma laterally and extending into the right gluteal musculature measuring 7.0 x 5.4 x 7.9 cm. 4. Cholelithiasis is present without cholecystitis. No gallbladder wall thickening or pericholecystic fluid collection. COMMENTS: Consistent with the [employer]'s Incidental Findings Committee white paper (J Am Douglas Radiol 2018): Any incidental renal lesion less than 1 cm or classified as too small to characterize, or any incidental cystic renal lesion characterized as simple-appearing, is likely benign. No follow-up imaging is recommended for these lesions per consensus recommendations based on imaging criteria. ADDENDUM: 04/18/22 0453 THIS REPORT CONTAINS FINDINGS THAT MAY BE CRITICAL TO PATIENT CARE. The findings were verbally communicated via telephone conference at 4:52 AM [employer] on 04/18/2022 with . The findings were acknowledged and understood. Laboratory Results WBC 11.1 10^3/uL (4.0-10.0) H 04/22/22 02:58 RBC 3.16 10^6/uL (4.1-5.3) L 04/22/22 02:58 Hgb 9.5 g/dL (11.5-15.3) L 04/22/22 02:58 Hct 29.4 % (37.0-47.0) L 04/22/22 02:58 MCV 93.0 fl (81-99) 04/22/22 02:58 MCH 30.1 pg (28.0-34.0) 04/22/22 02:58 MCHC 32.3 g/dL (30.0-36.0) 04/22/22 02:58 RDW 13.2 % (12.1-15.1) 04/22/22 02:58 Plt Count 245 10^3/cmm (130-400) 04/22/22 02:58 MPV 9.8 fL (7.4-10.4) 04/22/22 02:58 Neut % (Auto) 70.3 % 04/22/22 02:58 Lymph % (Auto) 17.2 % 04/22/22 02:58 Wilkes % (Auto) 7.9 % 04/22/22 02:58 Eos % (Auto) 3.2 % 04/22/22 02:58 Baso % (Auto) 0.4 % 04/22/22 02:58 Neut # (Auto) 7.83 10^3/uL (1.8-7.7) H 04/22/22 02:58 Lymph # (Auto) 1.9 10^3/uL (0.8-4.8) 04/22/22 02:58 Wilkes # (Auto) 0.9 10^3/uL (0.2-0.9) 04/22/22 02:58 Eos # (Auto) 0.4 10^3/uL (0.0-0.8) 04/22/22 02:58 Baso # (Auto) 0.0 10^3/uL (0.0-0.1) 04/22/22 02:58 Nucleated RBC % (auto) 0 % 04/22/22 02:58 Nucleated RBCs # 0.0 /100WBC 04/22/22 02:58 ESR 3 mm/hr (0-15) 04/17/22 09:03 PT 14.40 SECONDS (12.1-14.9) 04/19/22 04:32 INR 1.08 (0.8-1.2) 04/19/22 04:32 D-Dimer 2.55 ug/mIFEU (0-0.59) H 04/17/22 17:12 Sodium 137 mmol/L (136-145) 04/22/22 02:58 Potassium 4.0 mmol/L (3.5-5.1) 04/22/22 02:58 Chloride 101 mmol/L (98-107) 04/22/22 02:58 Carbon Dioxide 26 mmol/L (22-29) 04/22/22 02:58 Anion Gap 14.0 (5-19) 04/22/22 02:58 BUN 11 mg/dL (8-23) 04/22/22 02:58 Creatinine 0.5 mg/dL (0.5-0.9) 04/22/22 02:58 GFR Calculation Not Reportable 04/22/22 02:58 Glucose 103 mg/dL (65-115) 04/22/22 02:58 Estimat Average Glucose 108 04/16/22 04:23 Hemoglobin A1c 5.4 % (4.0-6.0) 04/16/22 04:23 Calculated Osmolality 284 mOsm/kg (285-295) L 04/22/22 02:58 Lactate 1.3 mmol/L (0.5-2.2) 04/18/22 05:44 Calcium 8.5 mg/dL (8.5-10.5) 04/22/22 02:58 Phosphorus 2.8 mg/dL (2.5-4.5) 04/20/22 04:32 Magnesium 2.0 mg/dL (1.7-2.3) 04/20/22 04:32 Iron 32 ug/dL (37-145) L 04/17/22 09:30 TIBC 195 mcg/dl 04/15/22 19:15 % Saturation 23.5 % (20-50) 04/15/22 19:15 Unsat Iron Binding 149 ug/dL (112-347) 04/15/22 19:15 Ferritin 292 ng/mL (15-150) H 04/17/22 09:30 Total Bilirubin 0.6 mg/dL (0.15-1.2) 04/20/22 04:32 Direct Bilirubin 0.20 mg/dL (0.00-0.30) 04/17/22 09:30 AST 18 U/L (0-32) 04/20/22 04:32 ALT 11 U/L (0-33) 04/20/22 04:32 Alkaline Phosphatase 43 U/L (35-105) 04/20/22 04:32 Creatine Kinase 257 U/L (26-192) H 04/19/22 04:32 CK-MB (CK-2) 1.7 ng/mL (0-5.34) 04/19/22 04:32 CK-MB (CK-2) Rel Index % (0.0-10.4) 04/19/22 04:32 Troponin T Baseline 9 ng/L (0-10) 04/17/22 17:12 Troponin T 120 Minute 6.77 ng/L (0-10) 04/17/22 20:53 Delta Troponin T -2.23 ABS# (0-10) L 04/17/22 20:53 Troponin T Hi Sens 6Hr 6.92 ng/L (0-10) 04/17/22 23:35 Troponin T Hi Sens 6Hr Delta -0.15 ng/L (0-12) L 04/17/22 23:35 C-Reactive Protein 96.9 mg/L (0.0-4.9) H 04/18/22 05:44 NT-Pro-B Natriuret Pep 583 pg/mL (0-450) H 04/20/22 04:32 Total Protein 4.9 g/dL (6.6-8.7) L 04/20/22 04:32 Albumin 2.7 g/dL (3.5-5.2) L 04/20/22 04:32 Globulin 2.2 g/dL (1.3-4.6) 04/20/22 04:32 Triglycerides 72 mg/dL (0-150) 04/16/22 04:23 Cholesterol 148 mg/dL (0-200) 04/16/22 04:23 LDL Cholesterol, Calc 82 mg/dL (50-129) 04/16/22 04:23 Total VLDL Cholesterol 14 mg/dL (0-30) 04/16/22 04:23 HDL Cholesterol 52 mg/dL (60-100) L 04/16/22 04:23 Cholesterol/HDL Ratio 2.85 mg/dL (0.0-4.40) 04/16/22 04:23 Lipase 7 U/L (13-60) L 04/17/22 09:30 Vitamin B12 > 2000 pg/mL (232-1245) H 04/17/22 09:30 Folate 6.8 ng/mL (4.8-37.3) 04/17/22 09:30 Procalcitonin 0.20 ng/mL (0-0.5) 04/17/22 09:30 TSH 3.26 uIU/mL (0.27-4.20) 04/15/22 19:15 Urine Color Yellow (Yellow) 04/15/22 21:00 Urine Appearance Clear (CLEAR) 04/15/22 21:00 Urine pH 5 (5-7) 04/15/22 21:00 Ur Specific [place] 1.025 (1.005-1.030) 04/15/22 21:00 Urine Protein Neg (Negative) 04/15/22 21:00 Urine Glucose (UA) Norm (Normal) 04/15/22 21:00 Urine Ketones Negative (Negative) 04/15/22 21:00 Urine Blood 3+ (Negative) H 04/15/22 21:00 Urine Nitrate Negative (Negative) 04/15/22 21:00 Urine Bilirubin Neg (Negative) 04/15/22 21:00 Urine Urobilinogen Norm mg/dL (Negative) 04/15/22 21:00 Ur Leukocyte Esterase Negative (Negative) 04/15/22 21:00 Urine RBC 5-10 /hpf (0-2) H 04/15/22 21:00 Urine WBC 0-4 /hpf (0-5) H 04/15/22 21:00 Ur Squamous Epith Cells 5-10 /hpf (0-5) H 04/15/22 21:00 Amorphous Sediment Not Reportable 04/15/22 21:00 Urine Bacteria 1+ /hpf (NONE) H 04/15/22 21:00 Urine Mucus 2+ /hpf 04/15/22 21:00 Lymphoma Panel See report 04/17/22 09:03 SARS-CoV-2 Ag (Rapid) negative (Negative) 04/22/22 01:30 Blood Type O Positive 04/17/22 20:53 Rho(D) Type Positive 04/17/22 20:53 Antibody Screen Negative 04/17/22 20:53 Crossmatch See Detail 04/17/22 20:53 Vitals Last Vital Signs Temp 98.8 F 04/22/22 13:06 Pulse 74 04/22/22 13:06 Resp 18 04/22/22 13:06 BP 150/67 04/22/22 13:06 Pulse Ox 96 04/22/22 13:06 O2 Del Method 04/22/22 11:18 O2 Flow Rate 3 04/20/22 08:00 Discharge Plan Discharge Patient Disposition: Xfer SNF Condition: Stable Prescriptions: New cefdinir 300 mg Capsule 300 mg PO BID 2 Days Qty: 4 0RF Discontinued anastrozole [Arimidex] 1 mg tablet 1 mg PO DAILY Qty: 90 2RF No Action (DME) Prosthetic Bra See Rx Instructions .Route .MEDSUPPLY Qty: 1 0RF Rx Instructions: As directed Discharge Orders: Discharge Order (Routine); Ordered 04/22/22 Ordered By: Sylvester Kerr Referrals: [facility] [Outside] Jessee Beebe MD [Hospitalist] - 04/23/22 10:45 am Harjit Elizabeth MD [Physician] - 05/15/22 1:15 pm Zeke Edwards MD [Staff Physician] - 05/02/22 11:00 am (LABS AT 11:[address] AT 12:30) Discharge Diet: Advance as tolerated Discharge Activity: Limit activity as instructed Patient Instructions: Cefdinir (By mouth), Inferior Vena Cava (IVC) Filter Placement (GEN), Colocaci?n de filtro en la vena cava inferior (DC) Activity Restrictions/Additional Instructions: Weight-bear as tolerated on right hip Replace dressing as needed for drainage. Okay to shower as long as dressing free of drainage. Hold anastrozole for now. Future discussed consideration with your primary doctor regarding if it may be safe to try to resume blood thinner medications in 1-2 weeks for blood clots. Follow-up with cardiology. If tolerating blood thinner medications filter may be removed. Hold anastrozole for now, follow-up with your oncology/hematology Dr. To further discuss blood clots, and risk and benefit of resuming this medication. Discharge Attestations Time Spent in Discharge Care*: greater than 30 min Quality Metrics Clinical Quality Measures [ No reported AMI, CVA or VTE this stay] Coding Level of Care Code Acute Code for Chg Fwd Diagnoses Acute anemia D64.9 Iron deficiency anemia D50.9 DVT (deep venous thrombosis) I82.409 Hypoxia R09.02 Closed right hip fracture S72.001A Leukocytosis D72.829 Post-operative haemorrhage Hematoma following procedure Bilateral pulmonary embolism I26.99 Anemia due to blood loss D50.0 Breast cancer, left breast C50.912
== END 2022-04-22 13:07 | disposition skilled nursing facility (03) | DRG 480 ==
LOC: ER 19:29 → MEDSURG 20:17
PROVIDERS: Family Medicine; Internal Medicine; Student in an Organized Health Care Education/Training Program; Admitting Provider Orthopaedic Surgery; Emergency Provider Emergency Medicine; Visit Provider Internal Medicine
PROC: 0QH636Z Insertion of Intramedullary Internal Fixation Device into Right Upper Femur, Percutaneous Approach (ICD-10-PCS; CPT 27245; principal; 2022-04-16 14:50)
PROC: 06H03DZ Insertion of Intraluminal Device into Inferior Vena Cava, Percutaneous Approach (ICD-10-PCS; CPT 37191; principal; 2022-04-18 10:00)
DX: S72.141A Displaced intertrochanteric fracture of right femur, initial encounter for closed fracture (principal); I26.99 Other pulmonary embolism without acute cor pulmonale; D62 Acute posthemorrhagic anemia; I82.442 Acute embolism and thrombosis of left tibial vein; M96.840 Postprocedural hematoma of a musculoskeletal structure following a musculoskeletal system procedure; W07.XXXA Fall from chair, initial encounter; J43.2 Centrilobular emphysema; I71.43 Infrarenal abdominal aortic aneurysm, without rupture; K80.20 Calculus of gallbladder without cholecystitis without obstruction; C50.912 Malignant neoplasm of unspecified site of left female breast; Z90.13 Acquired absence of bilateral breasts and nipples; Z79.811 Long term (current) use of aromatase inhibitors; M85.851 Other specified disorders of bone density and structure, right thigh; D50.9 Iron deficiency anemia, unspecified; E53.8 Deficiency of other specified B group vitamins
CPT/HCPCS: 36010; 36415; 36430; 37191; 51702; 71045; 71275; 73502; 74177; 75625; 76000; 80048; 80053; 80061; 80076; 80503; 81001; 82274; 82550; 82553; 82607; 82728; 82746; 83036; 83540; 83550; 83605; 83690; 83735; 83880; 84100; 84145; 84443; 84484; 85025; 85378; 85610; 85651; 86140; 86850; 86900; 86920; 87040; 87426; 88184; 88185; 93005; 93970; 94664; 96372; 97110; 97116; 97161; 97166; 97530; 97535; 99152; 99153; 99285; A9281; C1713; C1769; C1880; C1887; C1894; C9113; J0690; J0696; J1100; J1644; J1650; J1756; J1940; J2250; J2270; J2405; J2704; J3010; J3420; J7030; J7042; P9016; Q9967

== ENCOUNTER → 2022-05-08 11:06 | Outpatient (BNVA) | payer MEDICARE, SELFPAY | PROVIDERS: PCP Family Medicine; Visit Provider Family Medicine | DX: I26.99 Other pulmonary embolism without acute cor pulmonale (principal); D50.0 Iron deficiency anemia secondary to blood loss (chronic); I82.409 Acute embolism and thrombosis of unspecified deep veins of unspecified lower extremity; D50.9 Iron deficiency anemia, unspecified; C50.912 Malignant neoplasm of unspecified site of left female breast; R35.0 Frequency of micturition; M79.89 Other specified soft tissue disorders | CPT/HCPCS: 80048; 81000; 82607; 82728; 83550; 85025 ==

== ENCOUNTER 2022-05-15 12:19 | Oncology outpatient (recurring) (ONCR) | payer MEDICARE, SELFPAY ==
[2022-05-15 13:15] LABS: Basophils % 0.5 %; Eosinophils # 0.1 10^3/uL (0.0-0.8); Eosinophils % 0.9 %; Hematocrit 38.5 % (37.0-47.0); Hemoglobin 12.3 g/dL (11.5-15.3); Lymphocytes # 1.5 10^3/uL (0.8-4.8); Lymphocytes % 20.6 %; Mean Corpuscular HGB Conc 31.9 g/dL (30.0-36.0); Mean Corpuscular Hemoglobin 30.9 pg (28.0-34.0); Mean Corpuscular Volume 96.7 fl (81-99); Mean Platelet Volume 9.3 fL (7.4-10.4); Monocytes # 0.5 10^3/uL (0.2-0.9); Monocytes % 6.5 %; Neutrophils # 5.24 10^3/uL (1.8-7.7); Neutrophils % 71.1 %; Nucleated Red Blood Cells % 0 %; Platelet Count 303 10^3/cmm (130-400); Red Blood Count 3.98 10^6/uL (4.1-5.3); Red Cell Distribution Width 13.2 % (12.1-15.1); White Blood Count 7.4 10^3/uL (4.0-10.0)
[2022-05-15 13:39] LABS: Alanine Aminotransferase 7 U/L (0-33); Alkaline Phosphatase 118 U/L (35-105); Anion Gap 13.6 (5-19); Aspartate Amino Transferase 13 U/L (0-32); Blood Urea Nitrogen 15 mg/dL (8-23); Calcium 9.3 mg/dL (8.5-10.5); Carbon Dioxide 30 mmol/L (22-29); Chloride 103 mmol/L (98-107); Globulin 2.9 g/dL (1.3-4.6); Glucose 94 mg/dL (65-115); Osmolality Calculated 295 mOsm/kg (285-295); Potassium 4.6 mmol/L (3.5-5.1); Sodium 142 mmol/L (136-145); Total Bilirubin 0.4 mg/dL (0.15-1.2); Total Protein 6.9 g/dL (6.6-8.7)
== END 2022-05-24 23:59 | disposition home or self-care (01) ==
PROVIDERS: PCP Family Medicine; Visit Provider Internal Medicine Hematology & Oncology
DX: C50.812 Malignant neoplasm of overlapping sites of left female breast (principal); Z17.0 Estrogen receptor positive status [ER+]; C77.3 Secondary and unspecified malignant neoplasm of axilla and upper limb lymph nodes; Z90.13 Acquired absence of bilateral breasts and nipples; F17.210 Nicotine dependence, cigarettes, uncomplicated; I82.409 Acute embolism and thrombosis of unspecified deep veins of unspecified lower extremity; I26.99 Other pulmonary embolism without acute cor pulmonale; Z79.01 Long term (current) use of anticoagulants; Z95.818 Presence of other cardiac implants and grafts
CPT/HCPCS: 36415; 73502; 80053; 85025; 99024; 99214

== ENCOUNTER → 2022-08-16 10:28 | Outpatient (BNVA) | payer MEDICARE, SELFPAY | PROVIDERS: PCP Family Medicine; Visit Provider Nurse Practitioner Family | DX: Z98.890 Other specified postprocedural states (principal) | CPT/HCPCS: 73560; 73565; 99213 ==

== ENCOUNTER → 2022-12-04 13:39 | Outpatient (BNVA) | payer MEDICARE, SELFPAY | PROVIDERS: PCP Family Medicine; Visit Provider Family Medicine | DX: I26.99 Other pulmonary embolism without acute cor pulmonale (principal) | CPT/HCPCS: 80048 ==

== ENCOUNTER 2022-12-19 12:07 | Outpatient (CLI) | payer MEDICARE, SELFPAY ==
[2022-12-19] MEDS: iohexol 350 mg/mL 500 mL Btl (per mL) IV (12:15)
--- NOTE | 2022-12-19 12:15 | CT_ITS ---
WS: [id number] CT CHEST ANGIOGRAPHY WITH REFORMATS HISTORY: I26.99 - Other pulmonary embolism without acute cor pulmo... TECHNIQUE: Contiguous axial images are obtained through the chest during arterial injection of intrav enous contrast. Images are reconstructed to evaluate the pulmonary arteries. MIP imaging also reviewe d. All CT scans at [facility] use at least one of these dose optimization techniques: automat ed exposure control; mA and/or kV adjustment per patient size (includes targeted exams where dose is matched to clinical indication); or iterative reconstruction. CONTRAST: Omnipaque 350; 100 mL IV. DLP: 260.91 mGy.cm COMPARISON: 04/18/2022 Excellent opacification of the pulmonary arteries. No filling defects or pulmonary emboli are identif ied. Pulmonary artery is normal size. Mild atherosclerosis and ectasia thoracic aorta. Calcified plaq ue and mild intimal thickening. No aneurysm. No dissection is evident. Mild atherosclerotic changes c ontinue into the great vessels. LEFT vertebral artery arises directly from the arch. Heart is normal size. No RIGHT heart strain. No pericardial or pleural effusions. No mediastinal or h ilar adenopathy. Hyperexpanded lungs and mild centrilobular emphysema. No pulmonary mass. No nodules or pneumonia. Normal adrenal glands. Small hiatal hernia. No abnormality in the upper abdomen. IMPRESSION: 1. No pulmonary embolism. No residual pulmonary embolism in the LEFT main pulmonary artery. 2. No RIGHT heart strain. 3. Normal size pulmonary artery. 4. Mild centrilobular emphysema.
== END 2022-12-19 12:08 | disposition home or self-care (01) ==
LOC: RAD 12:07
PROVIDERS: PCP Family Medicine; Visit Provider Family Medicine
DX: I26.99 Other pulmonary embolism without acute cor pulmonale (principal); J43.2 Centrilobular emphysema
CPT/HCPCS: 71275; Q9967